=== PATIENT | female | born 1965 | race Two or more races ===

== ENCOUNTER 2024-05-22 10:31 | Outpatient (AMB) | payer MEDICARE, OTHER, SELFPAY ==
--- NOTE | 2024-05-22 10:49 | PD.ORTHCLVIS ---
Vital signs 05/22/24 10:50 Height 1.57 m Height Method Stated Weight 90.804 kg Weight Measurement Method Standing Scale BMI 36.6 BP 140/94 H Blood Pressure Source Automatic Cuff Blood Pressure Location Right Upper Arm Position Sitting Respiration 18 Pulse 80 Pulse Source Monitor Temp 97.2 F Temp Source Temporal Artery Scan Pulse Oximetry (%) 98 Oxygen Delivery Method Room Air Med/Allergies Allergies & Medications Allergies No Known Drug Allergies Allergy (Verified 05/22/24 10:50) Medication Reconciliation levothyroxine 25 mcg capsule 25 mcg PO QDAY 05/22/24 [History Confirmed 05/22/24] Subjective Visit Visit for: new patient and knee Immunization / Flu Flu Vaccine in the Last 12 Months: Yes Flu Vaccine Exclusion Criteria: Already Received History of Present Illness Chief complaint: BILATERAL KNEE PAIN Date of injury / onset of symptoms: EDDA Portillo is a pleasant 59-year-old female with bilateral knee pain worse on the left. This been ongoing for over 4 years. She has tried over 4 injections in each knee. She tried anti-inflammatories including naproxen and she tried a home exercise program at home. She is also tried physical therapy and failed. She is now using a cane and reports that she has pain at rest at night. Personal History Occupation: UNEMPLOYED Red flag PMH: none Pain Pain level (0-10): 7 Pain duration: ALL DAY Pain location: inside (medial), outside (lateral), anterior and posterior Pain quality: sharp, dull and aching Pain timing: increases with activity Associated signs & symptoms: numbness, weakness and stiffness Ambulatory data Ambulatory device: cane Treatments Number of previous injections: 3 Improvement with previous injections: Yes Improvement with PT: No Improvement with NSAIDS: n/a Review of Systems Review of Systems: All systems negative unless otherwise noted in HPI. Exam Exam Patient is in no acute distress and is cooperative with the examination today. Breathing is nonlabored. In no respiratory distress. Bilateral extremities were evaluated and demonstrates sensation intact to light touch. Palpable pedal pulses are present. No significant edema is present. Bilateral hips were examined. The patient has no pain with log roll of the hips. Internal rotation to 30 degrees and external rotation to 30 degrees is painless. Negative FADIR. The left knee was examined. The left knee is in [varus] alignment. Range of motion from [0-115] degrees. Knee is stable to varus and valgus as well as AP translation with <5mm. Patient has a [negative] McMurrays. There is [no] pain with patellofemoral compression and [no] crepitus noted. The knee is [tender] to palpation [medially]. The right knee was also examined. The right knee is in [varus] alignment. Range of motion from [0-120] degrees. Knee is stable to varus and valgus as well as AP translation with <5mm. Patient has a [negative] McMurrays. There is [no] pain with patellofemoral compression and [no] crepitus noted. The knee is [tender] to palpation [medially]. Bilateral knee x-rays demonstrate significant joint space narrowing with complete obliteration of the medial joint space on the left. There are osteophytes present. This is Kellgren-Surendra stage IV. Assessment and Plan Problem List (1) Arthritis of left knee: Status: Acute Plan: Patient is a 59-year-old female with severe left knee arthritis. She is failed conservative treatment occluding over 4 injections, anti-inflammatories, home exercise programs, and physical therapy. She is also made a good attempt to lose weight. We thus discussed total knee replacement is a reasonable option. She has lost over 10 pounds since her last PCP visit. The nature and purpose of the total knee replacement, alternative method(s) of treatment, the material risks involved, and the possibility of complications were fully explained to the patient. The patient does NOT have any of the following contraindications to TKA: - Active infection of the knee joint, OR - Active systemic bacteremia, OR - Active skin infection or open wound at surgical site, OR - Neuropathic arthritis, OR - Severe, rapidly progressive neurological disease, OR - Severe medical condition that makes risks of surgery outweigh the potential benefit The patient was told the most common risks and complications associated with a total knee replacement include, but are not limited to: blood clots in the leg, fatal pulmonary embolism, dislocation of the prosthesis, intraoperative and postoperative fractures of the femur or tibia, infection, failure of the prosthesis or grafting materials, complications from anesthesia, reactions to blood transfusions, postoperative leg length inequality, instability of the knee replacement, nerve damage or injury, vascular injury, delayed wound healing, infection, other injury or even . In addition, there are risks associated with anesthesia given during this operation. Also, the patient was told that after undergoing a total knee replacement there may still be persistent pain or disability. The patient was informed that the success of this operation in part depends upon the mechanical devices which are going to be implanted and that these devices can fail or malfunction, and may need to be repaired or replaced and there are no guarantees as to the longevity of this device or its parts and that it or its parts could fail prematurely. The patient was also notified that during the course of surgery, there may be a need to use bone graft from donors, and that any bone graft used will be carefully screened for communicable diseases, including AIDS, hepatitis, Abdirizak-Creutzfeldt, or other diseases, but despite the screening procedures, there is a small chance that they could contract one of these diseases. Finally, the patient was asked to follow completely and fully with all advice and recommended treatments, and that recovery and ultimate outcome are affected by their compliance with recommended treatment. We discussed the risks, benefits and treatment alternatives, and the patient is interested in proceeding with surgery. We will try to set this up as expeditiously as possible. Office Procedures GNS Level of Care Nursing/Assessment Patient Status: Initial/New Patient Nursing Assessment/Reassesment: Medication Reconciliation, Update PMH in EMR and Vital Signs Coordination of Care: Complex Care and Chronic Disease 1-5, Education Complex Pt/Fam, Consent,records obtained, informed consent, Results/Orders obtained and Staff clarify orders Special Needs: Language special needs New Patient Charge New Patient Point Assignment: 1094 New Patient Point Charge: SURVEY COORDINATOR Level 3 (0030-0423) Past Medical History Past Medical History Have you ever been diagnosed with any of the following: Respiratory Problems Smoking: No Smoking Exposure: No Endocrine Problems Hypothyroidism: Yes Surgical History Additional Surgical History: GASTRIC BYPASS
[2024-05-22 10:50] VITALS: BP 140/94; PULSE 80; RESP 18; TEMP 36.2; O2SAT 98; BMI 36.6
== END 2024-05-22 11:19 | disposition home or self-care (01) ==
PROVIDERS: PCP Internal Medicine; Referring Provider Internal Medicine; Supervising Provider Orthopaedic Surgery Adult Reconstructive Orthopaedic Surgery; Visit Provider Orthopaedic Surgery Adult Reconstructive Orthopaedic Surgery
DX: M17.12 Unilateral primary osteoarthritis, left knee (principal)
CPT/HCPCS: 99203; G0463

== ENCOUNTER 2024-06-05 10:26 | Outpatient (AMB) | payer MEDICARE, OTHER, SELFPAY ==
[2024-06-05 10:41] VITALS: BP 123/85; PULSE 74; RESP 18; TEMP 36.1; O2SAT 97; BMI 37.2
--- NOTE | 2024-06-05 10:41 | ORTHONT_ITS ---
Vital signs 06/05/24 10:41 Height 1.57 m Height Method Stated Weight 91.796 kg Weight Measurement Method Standing Scale BMI 37.2 BP 123/85 H Blood Pressure Source Automatic Cuff Blood Pressure Location Right Upper Arm Position Sitting Respiration 18 Pulse 74 Pulse Source Monitor Temp 96.9 F Temp Source Temporal Artery Scan Pulse Oximetry (%) 97 Oxygen Delivery Method Room Air Med/Allergies Allergies & Medications Allergies No Known Drug Allergies Allergy (Verified 06/05/24 10:41) Medication Reconciliation levothyroxine 25 mcg capsule 25 mcg PO QDAY 05/22/24 [History Confirmed 05/25 09/17] Subjective Visit Visit for: new patient, follow up visit, knee and x-rays Immunization / Flu Flu Vaccine in the Last 12 Months: Yes Flu Vaccine Exclusion Criteria: No Exclusion Criteria and Already Received History of Present Illness Chief complaint: BILATERAL KNEE PAIN Date of injury / onset of symptoms: EDDA Portillo is a pleasant 59-year-old female with bilateral knee pain worse on the left. This been ongoing for over 4 years. She has tried over 4 injections in each knee. She tried anti-inflammatories including naproxen and she tried a home exercise program at home. She is also tried physical therapy and failed. She is now using a cane and reports that she has pain at rest at night. Personal History Occupation: UNEMPLOYED Red flag PMH: none Pain Pain level (0-10): 7 Pain duration: ALL DAY Pain location: inside (medial), outside (lateral), anterior and posterior Pain quality: sharp, dull and aching Pain timing: increases with activity Associated signs & symptoms: numbness, weakness and stiffness Ambulatory data Ambulatory device: cane Treatments Number of previous injections: 3 Improvement with previous injections: Yes Improvement with PT: No Improvement with NSAIDS: n/a Review of Systems Review of Systems: All systems negative unless otherwise noted in HPI. Exam Exam Patient is in no acute distress and is cooperative with the examination today. Breathing is nonlabored. In no respiratory distress. Bilateral extremities were evaluated and demonstrates sensation intact to light touch. Palpable pedal pulses are present. No significant edema is present. Bilateral hips were examined. The patient has no pain with log roll of the hips. Internal rotation to 30 degrees and external rotation to 30 degrees is painless. Negative FADIR. The left knee was examined. The left knee is in [varus] alignment. Range of motion from [0-115] degrees. Knee is stable to varus and valgus as well as AP translation with <5mm. Patient has a [negative] McMurrays. There is [no] pain with patellofemoral compression and [no] crepitus noted. The knee is [tender] to palpation [medially]. The right knee was also examined. The right knee is in [varus] alignment. Range of motion from [0-120] degrees. Knee is stable to varus and valgus as well as AP translation with <5mm. Patient has a [negative] McMurrays. There is [no] pain with patellofemoral compression and [no] crepitus noted. The knee is [tender] to palpation [medially]. Bilateral knee x-rays demonstrate significant joint space narrowing with complete obliteration of the medial joint space on the left. There are osteophytes present. This is Kellgren-Surendra stage IV. Assessment and Plan Problem List (1) Arthritis of left knee: Status: Acute Plan: Patient is a 59-year-old female with severe left knee arthritis. She is failed conservative treatment occluding over 4 injections, anti-inflammatories, home exercise programs, and physical therapy. She is also made a good attempt to lose weight. We thus discussed total knee replacement is a reasonable option. She has lost over 10 pounds since her last PCP visit. She reports the pain is worse on the left and we will start on that side The nature and purpose of the total knee replacement, alternative method(s) of treatment, the material risks involved, and the possibility of complications were fully explained to the patient. The patient does NOT have any of the following contraindications to TKA: - Active infection of the knee joint, OR - Active systemic bacteremia, OR - Active skin infection or open wound at surgical site, OR - Neuropathic arthritis, OR - Severe, rapidly progressive neurological disease, OR - Severe medical condition that makes risks of surgery outweigh the potential benefit The patient was told the most common risks and complications associated with a total knee replacement include, but are not limited to: blood clots in the leg, fatal pulmonary embolism, dislocation of the prosthesis, intraoperative and postoperative fractures of the femur or tibia, infection, failure of the prosthesis or grafting materials, complications from anesthesia, reactions to blood transfusions, postoperative leg length inequality, instability of the knee replacement, nerve damage or injury, vascular injury, delayed wound healing, infection, other injury or even . In addition, there are risks associated with anesthesia given during this operation. Also, the patient was told that after undergoing a total knee replacement there may still be persistent pain or disability. The patient was informed that the success of this operation in part depends upon the mechanical devices which are going to be implanted and that these devices can fail or malfunction, and may need to be repaired or replaced and there are no guarantees as to the longevity of this device or its parts and that it or its parts could fail prematurely. The patient was also notified that during the course of surgery, there may be a need to use bone graft from donors, and that any bone graft used will be carefully screened for communicable diseases, including AIDS, hepatitis, Abdirizak-Creutzfeldt, or other diseases, but despite the screening procedures, there is a small chance that they could contract one of these diseases. Finally, the patient was asked to follow completely and fully with all advice and recommended treatments, and that recovery and ultimate outcome are affected by their compliance with recommended treatment. We discussed the risks, benefits and treatment alternatives, and the patient is interested in proceeding with surgery. We will try to set this up as expeditiously as possible. Office Procedures GNS Level of Care Nursing/Assessment Patient Status: Established Patient Nursing Assessment/Reassesment: Medication Reconciliation, Update PMH in EMR and Vital Signs Coordination of Care: Complex Care and Chronic Disease 1-5, Education Complex Pt/Fam, Consent,records obtained, informed consent, 2-3 Insurance Autorizations needed, Results/Orders obtained and Staff clarify orders Special Needs: Language special needs Established Patient Charge Established Patient Point Assignment: 115 Established Patient Point Charge: EP Level 3 (80-115) Past Medical History Past Medical History Have you ever been diagnosed with any of the following: Respiratory Problems Smoking: No Smoking Exposure: No Endocrine Problems Hypothyroidism: Yes
== END 2024-06-05 11:22 | disposition home or self-care (01) ==
LOC: HODSRG 10:26
PROVIDERS: PCP Internal Medicine; Referring Provider Internal Medicine; Supervising Provider Orthopaedic Surgery Adult Reconstructive Orthopaedic Surgery; Visit Provider Orthopaedic Surgery Adult Reconstructive Orthopaedic Surgery
DX: M17.12 Unilateral primary osteoarthritis, left knee (principal); M25.562 Pain in left knee; M25.561 Pain in right knee
CPT/HCPCS: 99213; G0463

== ENCOUNTER → 2024-06-14 | Outpatient (CLI) | payer MEDICARE, MEDICAID, SELFPAY ==
--- NOTE | 2024-06-14 12:55 | XR_ITS ---
Examination: CT left lower extremity without intravenous contrast 2-D sagittal reconstructions. 2-D coronal reconstructions. 3-D reconstructions. Date and time of exam:June 14, 2024 1522 hours INDICATIONS: Left knee pain osteoarthritis 2 years CTDI: vol (mGy):12.1 DLP: (mGycm):827 Technique: Multiple 1.25 mm axial sections of the left lower extremity without intravenous contrast have been obtained. 2-D sagittal and coronal reconstructions have been obtained. 3-D reconstructions have been obtained. Low dose protocols were performed. One or more of the following dose reduction techniques were used; automated exposure control, adjustment of the mA and/or KV according to patient size, use of iterative reconstruction technique. 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
== END | disposition home or self-care (01) ==
PROVIDERS: Referring Provider Orthopaedic Surgery Adult Reconstructive Orthopaedic Surgery; Visit Provider Orthopaedic Surgery Adult Reconstructive Orthopaedic Surgery
DX: M17.12 Unilateral primary osteoarthritis, left knee (principal); M25.862 Other specified joint disorders, left knee
CPT/HCPCS: 73700

== ENCOUNTER 2024-07-04 06:45 | Day surgery (SDC) | payer OTHER, SELFPAY ==
[2024-06-29 09:19] VITALS: BMI 40.4
--- NOTE | 2024-06-29 09:37 | EKG_ITS ---
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
[2024-06-29 11:25] LABS: Basophils # (Auto) 0.1 Thou/mm3 (0.0-0.2); Basophils % (Auto) 1 % (0-2.5); Eosinophils # (Auto) 0.1 Thou/mm3 (0.0-0.5); Eosinophils % (Auto) 2 % (0-10); Hemoglobin 14.1 g/dL (12.0-16.0); Immature Granulocytes % (Auto) 0 % (0-0); Immature Granulocytes Auto 0.01 Thou/mm3 (0.00-0.00); Lymphocytes # (Auto) 2.6 Thou/mm3 (1.0-4.8); Lymphocytes % (Auto) 41 % (10-50); Mean Corpuscular HGB Conc 33.6 g/dl (31.0-37.0); Mean Corpuscular Hemoglobin 30.1 pg (25.0-35.0); Mean Corpuscular Volume 90 fL (80-100); Monocytes # (Auto) 0.5 Thou/mm3 (0.0-0.8); Monocytes % (Auto) 7 % (0-12); Neutrophils # (Auto) 3.2 Thou/mm3 (1.8-7.7); Neutrophils % (Auto) 49 % (37-80); Nucleated Red Blood Cell % 0 /100 WBC (0); Platelet Count 290 Thou/mm3 (140-440); RDW Standard Deviation 40.5 fL (36.4-46.3); Red Blood Count 4.68 Miln/mm3 (4.00-5.20); White Blood Count 6.5 Thou/mm3 (3.6-11.0)
[2024-06-29 11:30] LABS: Partial Thromboplastin Time 29.1 Seconds (22.0-36.0); Prothrombin Time 11.2 Seconds (9.0-12.2)
[2024-06-29 11:43] LABS: Alanine Aminotransferase 11 U/L (10-49); Albumin, Serum 4.7 gm/dL (3.4-4.8); Albumin/Globulin Ratio 1.9 (1.2-2.2); Alkaline Phosphatase 124 U/L (46-116); Anion Gap 7 (7-16); BUN/Creatinine Ratio 18 Ratio (12-20); Bilirubin,Total 0.8 mg/dL (0.3-1.2); Blood Urea Nitrogen 11 mg/dL (9-23); Carbon Dioxide 31.1 mMol/L (20.0-31.0); Chloride 102 mMol/L (98-107); Creatinine (Component) 0.6 mg/dL (0.6-1.3); Estimated Creatinine Clearance 100.7 mL/min (>60); Globulin 2.5 gm/dL (2.3-3.5); Glucose 94 mg/dL (74-106); Osmolality,Calculated 278 (275-295); Potassium 4.2 mMol/L (3.4-5.1); Sodium 140 mMol/L (136-145); Total Protein 7.2 gm/dL (5.7-8.2); eGFR > 60 See Note
[2024-06-29 12:26] LABS: Aspartate Amino Transferase 20 U/L (0-34)
[2024-07-04] VITALS (12 sets, daily range): BP systolic 114–135; BP diastolic 67–84; PULSE 70–88; RESP 12–16; TEMP 36.6–36.8; O2SAT 95–100; BMI 40.4; BMI 13.0
[2024-07-04] MEDS: ACETAMINOPHEN 325 MG TABLET 650 MG PO (07:08)
[2024-07-04] MEDS: MELOXICAM 7.5 MG TABLET PO (07:08)
[2024-07-04] MEDS: PREGABALIN 75 MG CAPSULE PO (07:08)
[2024-07-04] MEDS: RINGERS LACTATED 1000 ML 1,000 ML 20 ML IV (07:10)
--- NOTE | 2024-07-04 07:20 | CHAP ---
translated for me. I prayed with patient before her procedure.
--- NOTE | 2024-07-04 09:46 | XR_ITS ---
Examination: Left knee 2 views Technique one AP lateral left knee 2 views Exam date and time: July 04, 2024 1023 hours INDICATIONS: Status post total left knee replacement FINDINGS: Moderate osteopenia Total left knee arthroplasty. Satisfactory alignment. No fracture IMPRESSION: Total left knee arthroplasty with satisfactory alignment
--- NOTE | 2024-07-04 09:54 | PD.SUROPNT ---
Date of Procedure 07/04/24 Pre Op Diagnosis left knee osteoarthritis Post Op Diagnosis left knee osteoarthritis Procedure left total knee replacement Findings full thickness cartilage loss and osteophytes Procedure Description Indication: The patient is a 59 year old who has a long history of left knee pain. X-rays show degenerative arthritis involving the knee. Over the past several years the patient has had increasing pain, progressive limitation in function. He has failed conservative measures including activity modification, physical therapy, injections, anti-inflammatories, and assistive devices. After a lengthy discussion of the risks and benefits, the patient presents now for total knee replacement. The nature and purpose of the total knee replacement, alternative method(s) of treatment, the material risks involved, and the possibility of complications were fully explained to the patient. The patient was told the most common risks and complications associated with a total knee replacement include, but are not limited to blood clots in the leg, fatal pulmonary embolism, dislocation of the prosthesis, intraoperative and postoperative fractures of the femur or tibia, infection, failure of the prosthesis or grafting materials, complications from anesthesia, reactions to blood transfusions, postoperative leg length inequality, instability of the knee replacement, nerve damage or injury, vascular injury, delayed wound healing, infections, other injury or even . In addition, there are risks associated with anesthesia given during this operation, temporary or permanent numbness on the skin lateral to the incision can be a complication unique to total knee surgery, and kneeling can be painful after knee replacement surgery. Also, the patient was told that after undergoing a total knee replacement there may still be pain or disability. We discussed with the patient that we will be using a robot-assisted technology. We discussed that there is a possibility of converting to manual instrumentation. The patient was informed that the success of this operation in part depends upon the mechanical devices which are going to be implanted and that these devices can fail or malfunction, and may need to be repaired or replaced and there are no guarantees as to the longevity of this device or its part and that it or its parts could fail prematurely. Finally, the patient was asked to follow completely and fully with all advice and recommended treatments, and that recovery and ultimate outcome are affected by their compliance with recommended treatment. Surgical technique: Patient was marked and consented in the pre-operative area. The patient was brought to the operating room and placed on the operating table in a supine position. Prior to positioning, a timeout procedure was performed between the surgeon, the anesthesiologist, and the nursing staff where the patient and the operative side were identified and confirmed. After adequate general anesthetic was obtained, the left lower extremity was prepped and draped in the usual sterile fashion. A weight based dose of Cefazolin were administered within 1 hour prior to incision. The robot was preregistered and calirated before the incision. The extremity was exsanguinated with an esmarch badge and tourniquet inflated to 250mmHg. A midline incision was made. A median parapatellar arthrotomy was made. The patella was subluxed laterally. A medial release was performed to expose the medial tibia. His femoral and tibial pins were placed through an intra incisional manner for both cases. Every effort was made to ensure that the distalmost aspect of the pin was hung in the second cortex. The arrays were then tightened several times to ensure that it was fixed for the remainder of the case. Both femoral and tibial checkpoints were then placed. We then went through the registration process of the bone. We then assessed the knee deformity and attempted to correct it. We also used the robot to aid in judging laxity in both extension and flexion. Final based on laxity and alignment we changed the preoperative assessment to obtain proper proper implant positioning and to correct deformity. Attention was then placed to the tibia. We made a tibial cut using the robot ensuring that both the MCL and the patella tendon were protected with retractors. We then went to the femur and made the posterior cut followed by the anterior cut and the anterior chamfer. The bone was then removed and we made a distal femur cut and a posterior chamfer cut. We verified all cuts. A trial reduction was performed with a size 3 femoral component and a size 3 keeled tibial component. The patella was cut and sized to a 31. The patella tracked centrally, and no lateral retinacular release was necessary. The trial implants were removed. The arrays, pins, and checkpoints were all removed. We performed a verification that all pins were removed. The cut bone surfaces were lavaged. A size 3 left femoral component, a size 3 keeled tibial component, were impacted into position. A size 31 patella was cemented into posiution The knee was felt to be well balanced in the sagittal and coronal plane. The final 3x10 mm cruciate-substituting articular insert was impacted into the tibial tray. The knee was brought out to full extension, flexed up to 120 degrees. It was stable to varus and valgus stress and appropriately balanced in flexion and extension. The wounds were copiously irrigated following deflation of tourniquet. The medial retinaculum was reapproximated with #1 vicryl and quill. The subcutaneous tissues were closed with 0 and 2-0 interrupted Vicryl. The skin was closed with 3-0 Monofilament V loc suture. A sterile dressing was applied. The patient was transferred to a bed and brought to recovery in stable condition. The patient tolerated the procedure well. There were no intraoperative complications. Sponge and needle counts were correct times 2. As the attending surgeon, Annetta ham I was present and performed the entire operation. Grafts/Implants Size 3 CR Femur Size 3 Tibia 10mm poly CS 31mm patella Implants nathaly cementless implants, cemented patella Pathology / specimen None Pathology comment: none Estimated Blood Loss 150 Surgeon Kd Oseguera MD Surgical Staff Operation Date: 07/04/24 10:15 Case Staff Anesthesiologist: Trevor Vargas
--- NOTE | 2024-07-04 10:39 | SUR.PHASEI ---
1004: Pt received in [facility] via gurney. Report from Megan MIRANDA and Dr. Vargas. Pt groggy. Easily aroused with eye opening. Resp even, unlabored. VS stable. Dressing to left knee dry, clean, intact. Left pedal pulses strong, regular. No c/o pain. 1025: Pt more awake. Resp even, unlabored. VS stable. Dressing dry, clean, intact. Pedal pulse strong, regular. Pt can wiggle left foot. No c/o pain. Radiology here to take ordered knee x-ray 2 view. 1030: X-rays complete. Pt tolerated procedure with no complaints voiced. Dr. Oseguera at bedside. Stated pt could be discharged home.
--- NOTE | 2024-07-04 11:13 | SUR.PHASEII ---
1105: Pt resting with no complaints voiced. VS stable. Dressing remains dry, clean, intact. Bilateral pedal pulses strong, regular. No c/o pain. Pt sitting up tolerating po fluids with no difficulty swallowing and no n/v. Awaiting Physical Therapy.
[2024-07-04] MEDS: ONDANSETRON INJ 2 MG/ML INJ 2 ML 4 MG IV (11:38)
--- NOTE | 2024-07-04 14:24 | SUR.PHASEII ---
Addendum entered by Eli Ownes RN 07/04/24 14:32: 1138: Pt stating she feel nauseated. Zofran given per order. 1148: Pt stated nausea has subsided and feels much better. Original Note: 1126: Physical Therapy here to assess pt. 1150: Physical Therapy assessment complete. Recommendation pt can be discharged. 1205: VS stable. Dressing to left knee dry, clean, intact. Bilateral pedal pulses strong, regular. Pt dressing. 1215: Pt dressed and assisted to transport chair. Ambulation steady. 1235: Pt fully awake, oriented x3. Pt requested sister interpret for her. Did not wish to use telephone medical assistant prn. Both stated understanding of discharge instructions. Pt stated she needed to void. Assisted to restroom. 1244: Pt transport to awaiting transportation. Pt discharged from [facility] in stable condition.
--- NOTE | 2024-07-06 15:27 | ESPR_ITS ---
Documentation for date of: 07/06/24 POST ANESTHESIA NOTE: Patient had GETA and L adductor canal block for L TKA on 07/04/24. I just called and spoke with her on the phone via translator interpreter and she denied any problems from anesthesia. Trevor Vargas MD Anesthesia Progress Note Progress Note Most recent Vital Signs: Last Vital Signs Temp 98.2 F 07/04/24 11:50 Pulse 88 07/04/24 11:50 Resp 12 07/04/24 11:50 BP 116/72 07/04/24 11:50 Pulse Ox 98 07/04/24 11:50 O2 Flow Rate 3 07/04/24 10:35
== END 2024-07-04 12:44 | disposition home or self-care (01) ==
PROVIDERS: Anesthesiology; PCP Internal Medicine; Referring Provider Orthopaedic Surgery Adult Reconstructive Orthopaedic Surgery; Visit Provider Orthopaedic Surgery Adult Reconstructive Orthopaedic Surgery
PROC: (CPT 27447; principal; 2024-07-04 10:00)
DX: M17.12 Unilateral primary osteoarthritis, left knee (principal); Z01.810 Encounter for preprocedural cardiovascular examination
CPT/HCPCS: 27447; 20985; 36415; 73560; 80053; 85025; 85610; 85730; 93005; 97162; A4217; C1713; C1776; J0171; J0690; J1100; J1885; J2250; J2371; J2405; J2704; J2710; J2795; J3010; J3490; J7030; J7120; P9045; A4648; A4649; A9270; J1596

== ENCOUNTER 2024-07-20 10:11 | Outpatient (AMB) | payer OTHER, SELFPAY ==
[2024-07-20 10:48] VITALS: BP 122/84; PULSE 76; RESP 18; TEMP 36.2; O2SAT 99; BMI 38.7
--- NOTE | 2024-07-20 10:48 | PD.ORTHCLVIS ---
Vital signs 07/20/24 10:48 Height 1.52 m Height Method Stated Weight 90.066 kg Weight Measurement Method Standing Scale BMI 38.7 BP 122/84 Blood Pressure Source Automatic Cuff Blood Pressure Location Right Upper Arm Position Sitting Respiration 18 Pulse 76 Pulse Source Monitor Temp 97.1 F Temp Source Temporal Artery Scan Pulse Oximetry (%) 99 Oxygen Delivery Method Room Air Med/Allergies Allergies & Medications Allergies No Known Drug Allergies Allergy (Verified 07/20/24 10:49) Medication Reconciliation levothyroxine 25 mcg capsule 25 mcg PO QDAY 05/22/24 [History Confirmed 07/20/24] acetaminophen 500 mg tablet 500 mg PO Q6H PRN Pain 06/29/24 [History Confirmed 07/20/24] omeprazole 40 mg capsule,delayed release 40 mg PO QDAY 06/29/24 [History Confirmed 07/20/24] acetaminophen 500 mg tablet (Acetaminophen Extra Strength) 1,000 mg (2 x 500 mg) PO Q6H PRN pain #90 tabs 07/04/24 [Rx Confirmed 07/20/24] aspirin 81 mg tablet,delayed release 81 mg PO BID #60 tabs 07/04/24 [Rx Confirmed 07/20/24] doxycycline hyclate 100 mg tablet 100 mg PO BID #14 tabs 07/04/24 [Rx Confirmed 07/20/24] gabapentin 300 mg capsule 300 mg PO .qhs #30 caps 07/04/24 [Rx Confirmed 07/20/24] sennosides 8.6 mg-docusate sodium 50 mg tablet (Senna-S) 1 tab-cap PO QDAY #30 tabs 07/04/24 [Rx Confirmed 07/20/24] oxycodone 5 mg tablet 5 mg PO Q6H PRN pain #28 tabs 07/20/24 [Rx] Exam Exam Patient is in no acute distress and is cooperative with the examination today. Breathing is nonlabored. In no respiratory distress. Bilateral extremities were evaluated and demonstrates sensation intact to light touch. Palpable pedal pulses are present. No significant edema is present. Bilateral hips were examined. The patient has no pain with log roll of the hips. Internal rotation to 30 degrees and external rotation to 30 degrees is painless. Negative FADIR. Left knee incision is clean dry and intact. Range of motion 0 to 95 degrees Assessment and Plan Problem List (1) Arthritis of left knee: Status: Acute Plan: Patient is a 59-year-old female with severe left knee arthritis. She is doing well status post left total knee replacement. We will see her back in approximately 4 weeks. She should start physical therapy Office Procedures GNS Level of Care Nursing/Assessment Patient Status: Established Patient Nursing Assessment/Reassesment: Medication Reconciliation, Update PMH in EMR and Vital Signs Coordination of Care: Complex Care and Chronic Disease 1-5, Education Complex Pt/Fam, 1 Ins Authorization and Staff clarify orders Special Needs: Language special needs Established Patient Charge Established Patient Point Assignment: 100 Established Patient Point Charge: EP Level 3 (80-115) MA Intake Visit Data Collection New Patient or Established: Established Patient (seen at [facility] within 3 years) Reason for Visit:: 2 WEEK POST OP LT TKA Seen by Clinical Staff ONLY (RN/MA): No Brick Off Bearer Required: Yes PCP or OBGYN visit in last 3 months: Yes Do You Feel Safe at Home: Yes Questionairres Past Medical History Past Medical History Have you ever been diagnosed with any of the following: Neurological Problems Seizures: No Cardiology Problems Hypercholesterolemia: Yes (diet control) Congestive Heart Failure: No Varicose Veins: Yes Respiratory Problems Chronic Obstructive Pulmonary Disease (COPD): No Smoking: No Smoking Exposure: No Stomache/Intestinal Problems Hepatitis: Yes (has treatment for a yr, does not know which kind) Gastroesophageal Reflux Disease: Yes Obesity: Yes Genital/Urinary Problems Renal Disease: No Reproductive Problems Previous Pregnancies: Yes Musculoskeletal Problems Arthritis: Yes Endocrine Problems Diabetes Mellitus Type 1: No Diabetes Mellitus Type 2: No Hypothyroidism: Yes Other Problems Hospitalization: No Shingles: No Blood Transfusions: No Blood Transfusion Reaction: No Anesthesia Reactions: No Chicken Pox: Yes Cancer: No Subjective Visit Visit for: post op #1 and knee Immunization / Flu Flu Vaccine in the Last 12 Months: Yes Flu Vaccine Exclusion Criteria: Already Received History of Present Illness Chief complaint: 2 WEEK POST OP LT TKA Date of 1st surgery (if applicable): 07/04/2024 Patient is doing well postop status post total knee replacement 2 weeks ago. She has some pain but it is well-controlled Pain Pain level (0-10): 6 Pain duration: CONSTANT Pain location: inside (medial), outside (lateral), anterior and posterior Pain quality: aching Pain timing: other (specify) (WHEN SITTING) Associated signs & symptoms: numbness Ambulatory data Ambulatory device: walker Review of Systems Review of Systems: All systems negative unless otherwise noted in HPI.
== END 2024-07-20 11:49 | disposition home or self-care (01) ==
LOC: HODSRG 10:11
PROVIDERS: Supervising Provider Orthopaedic Surgery Adult Reconstructive Orthopaedic Surgery; Visit Provider Orthopaedic Surgery Adult Reconstructive Orthopaedic Surgery
DX: M17.12 Unilateral primary osteoarthritis, left knee (principal); Z96.652 Presence of left artificial knee joint; E78.00 Pure hypercholesterolemia, unspecified; K21.9 Gastro-esophageal reflux disease without esophagitis
CPT/HCPCS: 99213; G0463

== ENCOUNTER → 2024-08-14 | Outpatient (CLI) | payer MEDICARE, SELFPAY ==
--- NOTE | 2024-08-14 12:51 | XR_ITS ---
Examination: Left knee 4 views TECHNIQUE: AP oblique lateral axial left knee 4 views Exam date and time: August 14, 2024 1346 hours Comparison April 04, 2024 INDICATIONS: Status post total knee replacement June 2024 FINDINGS: Moderate osteopenia Total left knee arthroplasty. Satisfactory alignment No loosening of the prosthetic components No fracture No patellar dislocation IMPRESSION: Total left knee replacement with satisfactory alignment
== END | disposition home or self-care (01) ==
PROVIDERS: PCP Internal Medicine; Referring Provider Orthopaedic Surgery Adult Reconstructive Orthopaedic Surgery; Visit Provider Orthopaedic Surgery Adult Reconstructive Orthopaedic Surgery
DX: M17.12 Unilateral primary osteoarthritis, left knee (principal); Z96.652 Presence of left artificial knee joint
CPT/HCPCS: 73564

== ENCOUNTER 2024-08-17 08:36 | Outpatient (AMB) | payer OTHER, SELFPAY ==
[2024-08-17 08:48] VITALS: BP 119/80; PULSE 81; RESP 18; TEMP 36.6; O2SAT 81; BMI 38.7
--- NOTE | 2024-08-17 08:48 | ORTHONT_ITS ---
Vital signs 08/17/24 08:48 Height 1.52 m Height Method Stated Weight 89.358 kg Weight Measurement Method Standing Scale BMI 38.7 BP 119/80 Blood Pressure Source Automatic Cuff Blood Pressure Location Right Upper Arm Position Sitting Respiration 18 Pulse 81 Pulse Source Monitor Temp 97.8 F Temp Source Temporal Artery Scan Pulse Oximetry (%) 81 L Oxygen Delivery Method Room Air Med/Allergies Allergies & Medications Allergies No Known Drug Allergies Allergy (Verified 08/17/24 08:49) Medication Reconciliation levothyroxine 25 mcg capsule 25 mcg PO QDAY 05/22/24 [History Confirmed 07/26 11/16] acetaminophen 500 mg tablet 500 mg PO Q6H PRN Pain 06/29/24 [History Confirmed 08/17/24] omeprazole 40 mg capsule,delayed release 40 mg PO QDAY 06/29/24 [History Confirmed 08/17/24] acetaminophen 500 mg tablet (Acetaminophen Extra Strength) 1,000 mg (2 x 500 mg) PO Q6H PRN pain #90 tabs 07/04/24 [Rx Confirmed 08/17/24] aspirin 81 mg tablet,delayed release 81 mg PO BID #60 tabs 07/04/24 [Rx C onfirmed 08/17/24] doxycycline hyclate 100 mg tablet 100 mg PO BID #14 tabs 07/04/24 [Rx Confirmed 08/17/24] gabapentin 300 mg capsule 300 mg PO .qhs #30 caps 07/04/24 [Rx Confirmed 08/17/24] sennosides 8.6 mg-docusate sodium 50 mg tablet (Senna-S) 1 tab-cap PO QDAY #30 tabs 07/04/24 [Rx Confirmed 08/17/24] oxycodone 5 mg tablet 5 mg PO Q6H PRN pain #28 tabs 07/20/24 [Rx Confirmed 08/17/24] Exam Exam Patient is in no acute distress and is cooperative with the examination today. Breathing is nonlabored. In no respiratory distress. Bilateral extremities were evaluated and demonstrates sensation intact to light touch. Palpable pedal pulses are present. No significant edema is present. Bilateral hips were examined. The patient has no pain with log roll of the hips. Internal rotation to 30 degrees and external rotation to 30 degrees is painless. Negative FADIR. Left knee incision is clean dry and intact. Range of motion 0 to 95 degrees Left knee is demonstrating a left total knee replacement that is in Good position and alignment Assessment and Plan Problem List (1) Arthritis of left knee: Status: Acute Plan: Patient is a 59-year-old female with severe left knee arthritis. She is doing well status post left total knee replacement. I would like to see her back in 4 to 5 weeks for motion check. She started physical therapy a little weight. Her motion is just past 90 I want her to continue with therapy therapy aggressively. Office Procedures GNS Level of Care Nursing/Assessment Patient Status: Established Patient Nursing Assessment/Reassesment: Medication Reconciliation, Update PMH in EMR and Vital Signs Coordination of Care: Complex Care and Chronic Disease 1-5, Education Complex Pt/Fam, Consent,records obtained, informed consent, Results/Orders obtained and Staff clarify orders Special Needs: Language special needs Established Patient Charge Established Patient Point Assignment: 95 Established Patient Point Charge: EP Level 3 (80-115) MA Intake Visit Data Collection New Patient or Established: Established Patient (seen at [facility] within 3 years) Reason for Visit:: POST OP LT TKA Seen by Clinical Staff ONLY (RN/MA): No Verbal consent obtained for Telemed visit?: No Merchandise Flow Associate Required: Yes PCP or OBGYN visit in last 3 months: Yes Hx Now: No Do You Feel Safe at Home: Yes Authorities Contacted: N/A Questionairres Past Medical History Past Medical History Have you ever been diagnosed with any of the following: Neurological Problems Seizures: No Cardiology Problems Hypercholesterolemia: Yes (diet control) Congestive Heart Failure: No Varicose Veins: Yes Respiratory Problems Chronic Obstructive Pulmonary Disease (COPD): No Smoking: No Smoking Exposure: No Stomache/Intestinal Problems Hepatitis: Yes (has treatment for a yr, does not know which kind) Gastroesophageal Reflux Disease: Yes Obesity: Yes Genital/Urinary Problems Renal Disease: No Reproductive Problems Previous Pregnancies: Yes Musculoskeletal Problems Arthritis: Yes Endocrine Problems Diabetes Mellitus Type 1: No Diabetes Mellitus Type 2: No Hypothyroidism: Yes Other Problems Hospitalization: No Shingles: No Blood Transfusions: No Blood Transfusion Reaction: No Anesthesia Reactions: No Chicken Pox: Yes Cancer: No Subjective Visit Visit for: post op #1 and knee Immunization / Flu Flu Vaccine in the Last 12 Months: Yes Flu Vaccine Exclusion Criteria: Already Received History of Present Illness Chief complaint: POST OP LT TKA Patient is 6 Weeks status post left total knee replacement. She is doing well. She just started physical therapy this week. She is using a walker Personal History Red flag PMH: BMI and none BMI Counceling provided: Yes Pain Pain level (0-10): 6 Pain duration: COMES AND GOES Pain location: inside (medial), outside (lateral) and anterior Pain quality: dull and aching Associated signs & symptoms: numbness Ambulatory data Ambulatory device: walker Treatments Improvement with previous injections: No Improvement with PT: No Improvement with NSAIDS: n/a Review of Systems Review of Systems: All systems negative unless otherwise noted in HPI.
== END 2024-08-17 08:59 | disposition home or self-care (01) ==
LOC: HODSRG 08:36
PROVIDERS: PCP Internal Medicine; Referring Provider Internal Medicine; Supervising Provider Orthopaedic Surgery Adult Reconstructive Orthopaedic Surgery; Visit Provider Orthopaedic Surgery Adult Reconstructive Orthopaedic Surgery
DX: M17.12 Unilateral primary osteoarthritis, left knee (principal); Z96.652 Presence of left artificial knee joint; E78.00 Pure hypercholesterolemia, unspecified; E03.9 Hypothyroidism, unspecified; K21.9 Gastro-esophageal reflux disease without esophagitis
CPT/HCPCS: 99213; G0463

== ENCOUNTER 2024-08-24 13:00 | Outpatient (RCR) | payer MEDICARE, OTHER, SELFPAY ==
--- NOTE | 2024-08-14 11:37 | PT.OIERPT ---
PT OP Initial Eval Patient Information Outpatient Physical Therapy Treatment Date: 08/14/24 Visit Reasons: Left TKA Medical Diagnosis: M17.12 Treatment Dx #1: L knee pain Treatment Dx #2: Dec L knee ROM Start of Care: 08/14/24 Date of Onset: 07/04/24 Smoking Status Smoking Status: Never smoker Initial Assessment Subjective: Pt is 59 yr old faroese speaking female s/p L TKA presents ambulating with FWW limited distances. Pt reports pain with bending the knee back. PLOF: pt was ambulating with a cane due to L knee pain. Prior to onset of L knee pain she was ambulating without assistive device community distances. PMH: thyroidism Pt goal: to get rid of the pain, bend the knee more, walk without the walker Objective: L knee ArOM: Extension: -5 deg Flexion: 80 deg SLR: 60 deg Strength: quads: 4-/5 HS: 4-/5 Gait: dec WB on L with FWW Assessment: Pt presentation consistent with post op L TKA with decreased ROM, strength ? and WB tolerance. Pt lacks a few degrees of knee extension and flexion is limited by ? myofascial limitations and pain.? Pt requires skilled therapy to improve ROM ? and strength and has good rehab potential.? Eval followed by HEP with printout. Short Term and Correction Goals 1. Independent with HEP 2. Improved knee ROM to full extension to 115 deg flexion 3. Improved quad and hamstring strength to 4+/5 4. Improved ambulatory tolerance to community distances with symmetrical ?? gait pattern.??? Treatment Plan 90 day POC 1. Manual therapy ? 2. Therex ? 3. Modalities as indicated, moist heat, ice, estim Frequency and Duration: 2-3x a week for 6 weeks Certification Dates: 08/14/24 to 11/11/24 Procedure Charges OP PT Eval Mod Complex 30 minutes: Yes
--- NOTE | 2024-08-17 11:04 | PTNOTE_ITS ---
PT Outpatient Daily Note OP Daily Note Outpatient Physical Therapy Treatment Date: 08/17/24 Visit Reasons: Left TKA Subjective: Same as evaluation Objective: See F/S for therex MT: STM L ITB and PROM into flexion with overpressure x12' Assessment: PROM of L knee flexion is 90 deg with overpressure Plan: Improve L knee flexion ROM Length of Time (minutes) of Treatment: 30 Minutes Procedure Charges Therapeutic Exercise 15 minutes: Yes Manual Educational Advisor 15 minutes: Yes
--- NOTE | 2024-08-20 10:45 | PT.ODAYNRPT ---
PT Outpatient Daily Note OP Daily Note Outpatient Physical Therapy Treatment Date: 08/20/24 Visit Reasons: Left TKA Subjective: Pain with bending the knee Objective: See F/S for therex MT: PROM into flexion with overpressure x7' Assessment: PROM of L knee flexion is 90 deg with overpressure Plan: Improve L knee flexion ROM Length of Time (minutes) of Treatment: 30 Minutes Procedure Charges Therapeutic Exercise 30 minutes: Yes
--- NOTE | 2024-08-24 14:03 | PT.ODAYNRPT ---
PT Outpatient Daily Note OP Daily Note Outpatient Physical Therapy Treatment Date: 08/24/24 Visit Reasons: Left TKA Subjective: No new complaints or concerns. Objective: Please see flow sheet for ther ex list. Assessment: Performed PROM into knee flexion to pt tolerance, pt guarded around 90 deg of knee flexion. Plan: Continue with POC. Length of Time (minutes) of Treatment: 30 Minutes Procedure Charges Therapeutic Exercise 30 minutes: Yes
== END 2024-08-24 23:59 | disposition home or self-care (01) ==
LOC: CPTX 13:00
PROVIDERS: PCP Orthopaedic Surgery Adult Reconstructive Orthopaedic Surgery; Referring Provider Orthopaedic Surgery Adult Reconstructive Orthopaedic Surgery; Visit Provider Orthopaedic Surgery Adult Reconstructive Orthopaedic Surgery
DX: M25.562 Pain in left knee (principal); Z96.652 Presence of left artificial knee joint; M17.12 Unilateral primary osteoarthritis, left knee
CPT/HCPCS: 97110; 97140; 97162

== ENCOUNTER 2024-09-13 09:31 | Outpatient (AMB) | payer OTHER, SELFPAY ==
[2024-09-13 10:11] VITALS: BP 130/84; PULSE 65; RESP 18; TEMP 35.6; O2SAT 98; BMI 38.4
--- NOTE | 2024-09-13 10:11 | PD.ORTHCLVIS ---
Vital signs 09/13/24 10:11 Height 1.52 m Height Method Stated Weight 88.706 kg Weight Measurement Method Standing Scale BMI 38.4 BP 130/84 Blood Pressure Source Automatic Cuff Blood Pressure Location Left Upper Arm Position Sitting Respiration 18 Pulse 65 Pulse Source Monitor Temp 96.0 F L Temp Source Temporal Artery Scan Pulse Oximetry (%) 98 Oxygen Delivery Method Room Air Med/Allergies Allergies & Medications Allergies No Known Drug Allergies Allergy (Verified 09/13/24 10:12) Medication Reconciliation levothyroxine 25 mcg capsule 25 mcg PO QDAY 05/22/24 [History Confirmed 09/13/24] acetaminophen 500 mg tablet 500 mg PO Q6H PRN Pain 06/29/24 [History Confirmed 09/13/24] omeprazole 40 mg capsule,delayed release 40 mg PO QDAY 06/29/24 [History Confirmed 09/13/24] acetaminophen 500 mg tablet (Acetaminophen Extra Strength) 1,000 mg (2 x 500 mg) PO Q6H PRN pain #90 tabs 07/04/24 [Rx Confirmed 09/13/24] aspirin 81 mg tablet,delayed release 81 mg PO BID #60 tabs 07/04/24 [Rx Confirmed 09/13/24] doxycycline hyclate 100 mg tablet 100 mg PO BID #14 tabs 07/04/24 [Rx Confirmed 09/13/24] gabapentin 300 mg capsule 300 mg PO .qhs #30 caps 07/04/24 [Rx Confirmed 09/13/24] sennosides 8.6 mg-docusate sodium 50 mg tablet (Senna-S) 1 tab-cap PO QDAY #30 tabs 07/04/24 [Rx Confirmed 09/13/24] oxycodone 5 mg tablet 5 mg PO Q6H PRN pain #28 tabs 08/22/24 [Rx Confirmed 09/13/24] Office Procedures GNS Level of Care Nursing/Assessment Patient Status: Established Patient Nursing Assessment/Reassesment: Medication Reconciliation, Update PMH in EMR and Vital Signs Coordination of Care: Complex Care and Chronic Disease 1-5, Education Complex Pt/Fam, Consent,records obtained, informed consent, Results/Orders obtained and Staff clarify orders Special Needs: Language special needs Established Patient Charge Established Patient Point Assignment: 95 Established Patient Point Charge: EP Level 3 (80-115) MA Intake Visit Data Collection New Patient or Established: Established Patient (seen at [facility] within 3 years) Reason for Visit:: L TKA FOLLOW UP Seen by Clinical Staff ONLY (RN/MA): No Dental Mold Maker Required: Yes PCP or OBGYN visit in last 3 months: Yes Hx Now: No Do You Feel Safe at Home: Yes Authorities Contacted: N/A Questionairres Past Medical History Past Medical History Have you ever been diagnosed with any of the following: Neurological Problems Seizures: No Cardiology Problems Hypercholesterolemia: Yes (diet control) Congestive Heart Failure: No Varicose Veins: Yes Respiratory Problems Chronic Obstructive Pulmonary Disease (COPD): No Smoking: No Smoking Exposure: No Stomache/Intestinal Problems Hepatitis: Yes (has treatment for a yr, does not know which kind) Gastroesophageal Reflux Disease: Yes Obesity: Yes Genital/Urinary Problems Renal Disease: No Reproductive Problems Previous Pregnancies: Yes Musculoskeletal Problems Arthritis: Yes Endocrine Problems Diabetes Mellitus Type 1: No Diabetes Mellitus Type 2: No Hypothyroidism: Yes Other Problems Hospitalization: No Shingles: No Blood Transfusions: No Blood Transfusion Reaction: No Anesthesia Reactions: No Chicken Pox: Yes Cancer: No Subjective Immunization / Flu Flu Vaccine in the Last 12 Months: Yes Flu Vaccine Exclusion Criteria: Already Received Review of Systems Review of Systems: All systems negative unless otherwise noted in HPI.
--- NOTE | 2024-09-13 10:11 | PD.ORTHCLVIS ---
Vital signs 09/13/24 10:11 Height 1.52 m Height Method Stated Weight 88.706 kg Weight Measurement Method Standing Scale BMI 38.4 BP 130/84 Blood Pressure Source Automatic Cuff Blood Pressure Location Left Upper Arm Position Sitting Respiration 18 Pulse 65 Pulse Source Monitor Temp 96.0 F L Temp Source Temporal Artery Scan Pulse Oximetry (%) 98 Oxygen Delivery Method Room Air Med/Allergies Allergies & Medications Allergies No Known Drug Allergies Allergy (Verified 09/13/24 10:12) Medication Reconciliation levothyroxine 25 mcg capsule 25 mcg PO QDAY 05/22/24 [History Confirmed 09/13/24] acetaminophen 500 mg tablet 500 mg PO Q6H PRN Pain 06/29/24 [History Confirmed 09/13/24] omeprazole 40 mg capsule,delayed release 40 mg PO QDAY 06/29/24 [History Confirmed 09/13/24] acetaminophen 500 mg tablet (Acetaminophen Extra Strength) 1,000 mg (2 x 500 mg) PO Q6H PRN pain #90 tabs 07/04/24 [Rx Confirmed 09/13/24] aspirin 81 mg tablet,delayed release 81 mg PO BID #60 tabs 07/04/24 [Rx Confirmed 09/13/24] doxycycline hyclate 100 mg tablet 100 mg PO BID #14 tabs 07/04/24 [Rx Confirmed 09/13/24] gabapentin 300 mg capsule 300 mg PO .qhs #30 caps 07/04/24 [Rx Confirmed 09/13/24] sennosides 8.6 mg-docusate sodium 50 mg tablet (Senna-S) 1 tab-cap PO QDAY #30 tabs 07/04/24 [Rx Confirmed 09/13/24] oxycodone 5 mg tablet 5 mg PO Q6H PRN pain #28 tabs 08/22/24 [Rx Confirmed 09/13/24] Exam Exam Patient is in no acute distress and is cooperative with the examination today. Breathing is nonlabored. In no respiratory distress. Bilateral extremities were evaluated and demonstrates sensation intact to light touch. Palpable pedal pulses are present. No significant edema is present. Bilateral hips were examined. The patient has no pain with log roll of the hips. Internal rotation to 30 degrees and external rotation to 30 degrees is painless. Negative FADIR. Left knee incision is clean dry and intact. Range of motion 0 to 85 degrees Left knee xrays demonstrate a left total knee replacement that is in Good position and alignment Assessment and Plan Problem List (1) Arthritis of left knee: Status: Acute Plan: Patient is a 59-year-old female with severe left knee arthritis. She is doing well status post left total knee replacement But has pain limited range of motion. She only can get to 85 degrees today. We discussed manipulation under anesthesia And the risks and benefits of it. We discussed the risks include rupture of the extensor mechanism, And possible fracture. The patient would like to proceed with this. We discussed with her that she is still stiff at 2-1/2 months and thus I do think this is a reasonable choice Office Procedures GNS Level of Care Nursing/Assessment Patient Status: Established Patient Nursing Assessment/Reassesment: Medication Reconciliation, Update PMH in EMR and Vital Signs Coordination of Care: Complex Care and Chronic Disease 1-5, Education Complex Pt/Fam, Consent,records obtained, informed consent, Results/Orders obtained and Staff clarify orders Special Needs: Language special needs Established Patient Charge Established Patient Point Assignment: 95 Established Patient Point Charge: EP Level 3 (80-115) Questionairres Past Medical History Past Medical History Have you ever been diagnosed with any of the following: Neurological Problems Seizures: No Cardiology Problems Hypercholesterolemia: Yes (diet control) Congestive Heart Failure: No Varicose Veins: Yes Respiratory Problems Chronic Obstructive Pulmonary Disease (COPD): No Smoking: No Smoking Exposure: No Stomache/Intestinal Problems Hepatitis: Yes (has treatment for a yr, does not know which kind) Gastroesophageal Reflux Disease: Yes Obesity: Yes Genital/Urinary Problems Renal Disease: No Reproductive Problems Previous Pregnancies: Yes Musculoskeletal Problems Arthritis: Yes Endocrine Problems Diabetes Mellitus Type 1: No Diabetes Mellitus Type 2: No Hypothyroidism: Yes Other Problems Hospitalization: No Shingles: No Blood Transfusions: No Blood Transfusion Reaction: No Anesthesia Reactions: No Chicken Pox: Yes Cancer: No Subjective Visit Visit for: post op #1 and knee Immunization / Flu Flu Vaccine in the Last 12 Months: Yes Flu Vaccine Exclusion Criteria: Already Received History of Present Illness Chief complaint: POST OP LT TKA Patient is 6 Weeks status post left total knee replacement. She is doing well. She started physical therapy very late. Her extension is fine and is limited just in flexion. She can go to about 85 degrees Personal History Red flag PMH: BMI and none BMI Counceling provided: Yes Pain Pain level (0-10): 6 Pain duration: COMES AND GOES Pain location: inside (medial), outside (lateral) and anterior Pain quality: dull and aching Associated signs & symptoms: numbness Ambulatory data Ambulatory device: walker Treatments Improvement with previous injections: No Improvement with PT: No Improvement with NSAIDS: n/a Review of Systems Review of Systems: All systems negative unless otherwise noted in HPI.
== END 2024-09-13 10:18 | disposition home or self-care (01) ==
LOC: HODSRG 09:31
PROVIDERS: PCP Internal Medicine; Referring Provider Internal Medicine; Supervising Provider Orthopaedic Surgery Adult Reconstructive Orthopaedic Surgery; Visit Provider Orthopaedic Surgery Adult Reconstructive Orthopaedic Surgery
DX: M17.12 Unilateral primary osteoarthritis, left knee (principal); Z96.652 Presence of left artificial knee joint; E78.00 Pure hypercholesterolemia, unspecified
CPT/HCPCS: 99213; G0463

== ENCOUNTER 2024-09-19 05:40 | Day surgery (SDC) | payer MEDICARE, MEDICAID, SELFPAY ==
[2024-09-18 08:50] VITALS: BMI 40.1
[2024-09-18 10:00] LABS: Basophils # (Auto) 0.1 Thou/mm3 (0.0-0.2); Basophils % (Auto) 1 % (0-2.5); Eosinophils # (Auto) 0.1 Thou/mm3 (0.0-0.5); Eosinophils % (Auto) 2 % (0-10); Hematocrit 39.8 % (36.0-46.0); Hemoglobin 13.7 g/dL (12.0-16.0); Immature Granulocytes % (Auto) 0 % (0-0); Lymphocytes # (Auto) 2.6 Thou/mm3 (1.0-4.8); Lymphocytes % (Auto) 49 % (10-50); Mean Corpuscular HGB Conc 34.4 g/dl (31.0-37.0); Mean Corpuscular Hemoglobin 30.2 pg (25.0-35.0); Mean Corpuscular Volume 88 fL (80-100); Monocytes # (Auto) 0.4 Thou/mm3 (0.0-0.8); Monocytes % (Auto) 7 % (0-12); Neutrophils # (Auto) 2.1 Thou/mm3 (1.8-7.7); Neutrophils % (Auto) 41 % (37-80); Nucleated Red Blood Cell % 0 /100 WBC (0); Platelet Count 266 Thou/mm3 (140-440); Red Blood Count 4.53 Miln/mm3 (4.00-5.20); White Blood Count 5.3 Thou/mm3 (3.6-11.0)
[2024-09-18 10:08] LABS: Partial Thromboplastin Time 27.9 Seconds (22.0-36.0); Prothrombin Time 11.4 Seconds (9.0-12.2)
[2024-09-18 10:25] LABS: Albumin, Serum 4.4 gm/dL (3.4-4.8); Albumin/Globulin Ratio 1.8 (1.2-2.2); Anion Gap 7 (7-16); Aspartate Amino Transferase 15 U/L (0-34); BUN/Creatinine Ratio 25 Ratio (12-20); Bilirubin,Total 0.7 mg/dL (0.3-1.2); Blood Urea Nitrogen 15 mg/dL (9-23); Calcium 9.6 mg/dL (8.3-10.6); Calcium (Corrected) 9.6 mg/dL (8.5-10.1); Chloride 105 mMol/L (98-107); Creatinine (Component) 0.6 mg/dL (0.6-1.3); Estimated Creatinine Clearance 96.3 mL/min (>60); Globulin 2.4 gm/dL (2.3-3.5); Glucose 89 mg/dL (74-106); Osmolality,Calculated 282 (275-295); Potassium 4.4 mMol/L (3.4-5.1); Sodium 142 mMol/L (136-145); Total Protein 6.8 gm/dL (5.7-8.2); eGFR > 60 See Note
[2024-09-18 10:26] LABS: Alanine Aminotransferase 9 U/L (10-49)
[2024-09-18 10:38] LABS: Alkaline Phosphatase 115 U/L (46-116)
[2024-09-19] VITALS (9 sets, daily range): BP systolic 102–145; BP diastolic 67–99; PULSE 65–85; RESP 12–19; TEMP 36.2–36.5; O2SAT 96–100; BMI 40.4
[2024-09-19] MEDS: RINGERS LACTATED 1000 ML 1,000 ML 20 ML IV (06:36)
--- NOTE | 2024-09-19 07:34 | XR_ITS ---
Examination: Left knee 2 views Technique one AP lateral left knee 2 views Exam date and time: September 19, 2024 0822 hrs. Indications: Postop knee replacement today. Findings: Significant osteopenia Total left knee arthroplasty. Satisfactory alignment No fracture Impression: Total left knee arthroplasty with satisfactory alignment
--- NOTE | 2024-09-19 07:35 | ESOP_ITS ---
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 She had delayed physical therapy. Range of motion was 5 to 85 degrees. We thus discussed manipulation under anesthesia as a reasonable option. We discussed possible risks including rupture of the extensor mechanism as well as fracture Procedure in detail: After adequate anesthesia, a surgical timeout was performed. We verified that the left side was the correct side. We found that her preoperative range of mo tion was 5 to 80 degrees. We applied gentle flexion force and was able to manipulate her knee to 110 degrees. Audible crackles were heard as we push the knee into flexion. The knee felt stable to varus and valgus stress as well as AP translation. Postmanipulation range of motion was 5 to 105 degrees Pathology / specimen None Pathology comment: none Estimated Blood Loss 0 Surgeon Kd Oseguera MD Surgical Staff Operation Date: 09/19/24 07:30 <No data on this case meets the specified criteria>
--- NOTE | 2024-09-19 07:43 | SUR.PHASEI ---
Pt. arrived to recovery via gurney, eyes closed, oral airway in place, pt. receiving 10 liters 02 via oxymask, lung sounds clear, equal expansion kofi., pedal pulses present kofi., report received from Luis MIRANDA and Dr. Cornejo.
--- NOTE | 2024-09-19 08:30 | SUR.PHASEII ---
pt able to tolerate oral fluids without difficulty swallowing or nausea/vomiting.
[2024-09-19] MEDS: oxyCODONE HCL 5 MG IR TAB PO (08:47)
--- NOTE | 2024-09-19 09:12 | SUR.PHASEII ---
pt awake and alert, breathing unlabored on room air. v/s stable. pt able to ambulate to wheelchair with steady gait. d/c instructions given with sunil GutierrezMukul in room, all questions answered. pt d/c via wheelchair with all belongings.
== END 2024-09-19 09:12 | disposition home or self-care (01) ==
PROVIDERS: Anesthesiology; PCP Internal Medicine; Referring Provider Orthopaedic Surgery Adult Reconstructive Orthopaedic Surgery; Visit Provider Orthopaedic Surgery Adult Reconstructive Orthopaedic Surgery
PROC: (CPT 27570; principal; 2024-09-19 07:30)
DX: M24.662 Ankylosis, left knee (principal)
CPT/HCPCS: 27570; 36415; 73560; 80053; 85025; 85610; 85730; J2250; J2405; J2704; J3010; J7120; A9270

== ENCOUNTER 2024-09-20 11:30 | Outpatient (RCR) | payer MEDICARE, OTHER, SELFPAY ==
--- NOTE | 2024-08-27 14:06 | PT.ODAYNRPT ---
PT Outpatient Daily Note OP Daily Note Outpatient Physical Therapy Treatment Date: 08/27/24 Visit Reasons: Left total knee Subjective: Pt reports L knee is doing ok, has been having pain and discomfort on the back of knee. Objective: Please see flow sheet for ther ex list. Assessment: Pt refused PROM today despite SENSORY SCIENTIST educating on benefits of PROm. Pt encouraged to perform HEP to work on mobility of L knee. Plan: Continue with POC. Length of Time (minutes) of Treatment: 30 Minutes Procedure Charges Therapeutic Exercise 30 minutes: Yes
--- NOTE | 2024-08-30 14:15 | PT.ODAYNRPT ---
PT Outpatient Daily Note OP Daily Note Outpatient Physical Therapy Treatment Date: 08/30/24 Visit Reasons: Left total knee Subjective: Pain with bending the knee Objective: See F/S for therex MT: PROM into flexion with overpressure x7' Assessment: PROM of L knee flexion is 90 deg with overpressure. Pt doesn't tolerate overpressure enough to make significant progress with knee flexion ROM goals. Plan: Improve L knee flexion ROM Length of Time (minutes) of Treatment: 30 Minutes Procedure Charges Therapeutic Exercise 30 minutes: Yes
--- NOTE | 2024-09-03 15:01 | PTNOTE_ITS ---
PT Outpatient Daily Note OP Daily Note Outpatient Physical Therapy Treatment Date: 09/03/24 Visit Reasons: Left total knee Subjective: Pt reports she has been using cane for ambulation but feels the back of her leg and thigh are tight and sore. Objective: Please see flow sheet for ther ex list. Assessment: Pt instructed on prone knee flexion stretch, pt able to replicate with good technique encouraged to perform for HEP. Plan: Continue with POC. Length of Time (minutes) of Treatment: 30 Minutes WELLNESS SPECIALIST Service Modifier Method I: Divide the number of min of care provided by the WELLNESS SPECIALIST/DIRECTOR OF INDUSTRIAL RELATIONS by the total min of care provided then multiply by 100. If greater than 11 percent modifier is required. Method II: Divide the total time of care provided to patient by 10 (round to the nearest whole number) and add 1 min. to set the minimum time requirement. If treatment total was 60 min., then 10% of 6 min PT CQ modifier applied: CQ Modifier applied Procedure Charges Therapeutic Exercise 30 minutes: Yes
--- NOTE | 2024-09-05 13:44 | PT.ODAYNRPT ---
PT Outpatient Daily Note OP Daily Note Outpatient Physical Therapy Treatment Date: 09/05/24 Visit Reasons: Left total knee Subjective: Pain with bending the knee Objective: See F/S for therex MT: PROM into flexion with overpressure x7' Assessment: PROM of L knee flexion is 90 deg with overpressure. Pt doesn't tolerate overpressure enough to make significant progress with knee flexion ROM goals. Plan: Improve L knee flexion ROM Procedure Charges Therapeutic Exercise 30 minutes: Yes
--- NOTE | 2024-09-12 14:27 | PT.ODS1RPT ---
PT OP Progress/Discharge Note Date of Service: 09/12/24 Progress Note/DC Note Progress Note/Discharge Note: Progress Note Patient Information Visit Reasons: Left total knee Service Continue Service or Discharge: Continue Service Status Subjective: Pain with bending the knee. Ambulating with cane. Objective: See F/S for therex MT: PROM into flexion with overpressure x7' L knee AROM: Extension: full Flexion: 85 deg PROM flexion: 90 deg Gait: decreased WB on L LE with lateral sway with cane Assessment: Pt has attended / Rx sessions with slow progress with PROM of L knee flexion that is 90 deg with overpressure. Pt doesn't tolerate overpressure enough to make significant progress with knee flexion ROM goals due to pain response. Pt has full extension to meet that goal. Plan: Continue with 2 more visits to improve L knee flexion ROM then reassess Procedure Charges Therapeutic Exercise 30 minutes: Yes
--- NOTE | 2024-09-14 14:09 | PTNOTE_ITS ---
PT Outpatient Daily Note OP Daily Note Outpatient Physical Therapy Treatment Date: 09/14/24 Visit Reasons: Left total knee Subjective: Pt reports L knee continues to be painful. Pt mentioned that she had follow up with surgeon and he scheduled her for a KASSANDRA for Thursday September 19, 2024. Objective: Please see flow sheet for ther ex list. Assessment: Pt educated on the importance of returning to PT day 1 post op, pt agreed schedule appt. for PT. Pt continues to be guarded due to pain response during static, dynamic and manual stretches. Plan: Continue with POC. Length of Time (minutes) of Treatment: 30 Minutes ADULT FAMILY HOME PROGRAM MANAGER Service Modifier Method I: Divide the number of min of care provided by the ADULT FAMILY HOME PROGRAM MANAGER/MACHINE ATTENDANT by the total min of care provided then multiply by 100. If greater than 11 percent modifier is required. Method II: Divide the total time of care provided to patient by 10 (round to the nearest whole number) and add 1 min. to set the minimum time requirement. If treatment total was 60 min., then 10% of 6 min PT CQ modifier applied: CQ Modifier applied Procedure Charges Therapeutic Exercise 30 minutes: Yes
--- NOTE | 2024-09-17 14:03 | PT.ODS1RPT ---
PT OP Progress/Discharge Note Date of Service: 09/17/24 Progress Note/DC Note Progress Note/Discharge Note: Progress Note Patient Information Visit Reasons: Left total knee Service Continue Service or Discharge: Continue Service Discharge Date: 09/12/24 Status Subjective: Pain with bending the knee. Ambulating with cane. KASSANDRA scheduled for 09/19. Objective: See F/S for therex MT: PROM into flexion with overpressure x7' L knee AROM: Extension: full Flexion: 85 deg PROM flexion: 90 deg Gait: decreased WB on L LE with lateral sway with cane Assessment: Pt has attended / Rx sessions with slow progress with PROM of L knee flexion that is 90 deg with overpressure. Pt doesn't tolerate overpressure enough to make significant progress with knee flexion ROM goals due to pain response. Pt has full extension to meet that goal. Pt will need more authorized visits to continue with therapy the day after the KASSANDRA to work on flexion ROM. Plan: Request additional visits x8 to progress with knee flexion ROM goals. Procedure Charges Therapeutic Exercise 30 minutes: Yes
--- NOTE | 2024-09-20 13:27 | PT.ODS1RPT ---
PT OP Progress/Discharge Note Date of Service: 09/20/24 Progress Note/DC Note Progress Note/Discharge Note: Progress Note Patient Information Visit Reasons: Left total knee Service Continue Service or Discharge: Continue Service Discharge Date: 09/12/24 Status Subjective: Pain with bending the knee. Ambulating with cane. She had KASSANDRA yesterday Objective: See F/S for therex MT: PROM into flexion with overpressure x10' L knee AROM: Extension: full Flexion: 85 deg PROM flexion: 90 deg Gait: decreased WB on L LE with lateral sway with cane Assessment: Pt was authorized for 12 more Rx sessions and had KASSANDRA yesterday. Today she got to PROM of L knee flexion that is 90 deg with overpressure. Pt doesn't tolerate enough overpressure to make significant progress with knee flexion ROM goals due to pain response. PT encouraged to tolerate more pain to progress with ROM. Plan: Continue per POC with additional authorized visits Procedure Charges OP PT Re-evaluation: Yes
== END 2024-09-21 23:59 | disposition home or self-care (01) ==
LOC: CPTX 11:30
PROVIDERS: PCP Orthopaedic Surgery Adult Reconstructive Orthopaedic Surgery; Referring Provider Orthopaedic Surgery Adult Reconstructive Orthopaedic Surgery; Visit Provider Orthopaedic Surgery Adult Reconstructive Orthopaedic Surgery
DX: M25.562 Pain in left knee (principal); Z96.652 Presence of left artificial knee joint; M17.12 Unilateral primary osteoarthritis, left knee
CPT/HCPCS: 97110; 97164

== ENCOUNTER 2024-10-04 09:37 | Outpatient (AMB) | payer MEDICARE, MEDICAID, SELFPAY ==
--- NOTE | 2024-10-04 09:55 | PD.ORTHCLVIS ---
Vital signs 10/04/24 09:57 Height 1.5 m Height Method Stated Weight 90.718 kg Weight Measurement Method Standing Scale BMI 40.3 BP 142/85 H Blood Pressure Source Automatic Cuff Blood Pressure Location Left Upper Arm Position Sitting Respiration 19 Pulse 78 Pulse Source Monitor Temp 96.8 F Temp Source Temporal Artery Scan Pulse Oximetry (%) 99 Oxygen Delivery Method Room Air Med/Allergies Allergies & Medications Allergies No Known Drug Allergies Allergy (Verified 10/04/24 10:00) Medication Reconciliation levothyroxine 25 mcg capsule 25 mcg PO QDAY 05/22/24 [History Confirmed 10/04/24] acetaminophen 500 mg tablet (Acetaminophen Extra Strength) 1,000 mg (2 x 500 mg) PO Q6H PRN pain #90 tabs 09/14/24 [Rx Confirmed 10/04/24] acetaminophen 500 mg tablet (Acetaminophen Extra Strength) 1,000 mg (2 x 500 mg) PO Q6H PRN pain #90 tabs 09/19/24 [Rx Confirmed 10/04/24] oxycodone 5 mg tablet 5 mg PO Q6H PRN pain #14 tabs 09/19/24 [Rx Confirmed 10/04/24] Exam Exam Patient is in no acute distress and is cooperative with the examination today. Breathing is nonlabored. In no respiratory distress. Bilateral extremities were evaluated and demonstrates sensation intact to light touch. Palpable pedal pulses are present. No significant edema is present. Bilateral hips were examined. The patient has no pain with log roll of the hips. Internal rotation to 30 degrees and external rotation to 30 degrees is painless. Negative FADIR. Left knee incision is clean dry and intact. Range of motion 0 to 110 degrees Left knee xrays demonstrate a left total knee replacement that is in Good position and alignment Assessment and Plan Problem List (1) Arthritis of left knee: Status: Acute Plan: Patient is a 59-year-old female with severe left knee arthritis. She is doing well status post left total knee replacement Manipulation under anesthesia. Her range of motion is significant improved. She should continue work with therapy. We will continue with physical therapy Office Procedures GNS Level of Care Nursing/Assessment Patient Status: Established Patient Nursing Assessment/Reassesment: Medication Reconciliation, Update PMH in EMR and Vital Signs Coordination of Care: Complex Care and Chronic Disease 1-5, Education Complex Pt/Fam, Consent,records obtained, informed consent, Results/Orders obtained and Staff clarify orders Special Needs: Language special needs Established Patient Charge Established Patient Point Assignment: 95 Established Patient Point Charge: EP Level 3 (80-115) MA Intake Visit Data Collection New Patient or Established: Established Patient (seen at [facility] within 3 years) Reason for Visit:: F/U KNEE MANIPULATION LEFT 2 WEEKS Seen by Clinical Staff ONLY (RN/MA): No Psychologist Educational Required: Yes PCP or OBGYN visit in last 3 months: Yes Hx Now: No Do You Feel Safe at Home: Yes Authorities Contacted: N/A Questionairres Past Medical History Past Medical History Have you ever been diagnosed with any of the following: Neurological Problems Seizures: No Cardiology Problems Hypercholesterolemia: Yes (diet control) Congestive Heart Failure: No Varicose Veins: Yes Respiratory Problems Chronic Obstructive Pulmonary Disease (COPD): No Smoking: No Smoking Exposure: No Stomache/Intestinal Problems Hepatitis: Yes (has treatment for a yr, does not know which kind) Gastroesophageal Reflux Disease: Yes Obesity: Yes Genital/Urinary Problems Renal Disease: No Reproductive Problems Previous Pregnancies: Yes Musculoskeletal Problems Arthritis: Yes Endocrine Problems Diabetes Mellitus Type 1: No Diabetes Mellitus Type 2: No Hypothyroidism: Yes Other Problems Hospitalization: No Shingles: No Blood Transfusions: No Blood Transfusion Reaction: No Anesthesia Reactions: No Chicken Pox: Yes Cancer: No Subjective Visit Visit for: follow up visit and knee Immunization / Flu Flu Vaccine in the Last 12 Months: No Flu Vaccine Exclusion Criteria: No Exclusion Criteria History of Present Illness Chief complaint: Manipulation Patient is 2 weeks status post manipulation under anesthesia for the left total knee replacement. She is doing well. Reports that she is significantly better. She is working with therapy aggressively Pain Pain level (0-10): 3 Pain duration: ON AND OFF Pain location: outside (lateral) and posterior Pain quality: aching Ambulatory data Ambulatory device: cane Treatments Improvement with previous injections: No Improvement with PT: No Improvement with NSAIDS: no Review of Systems Review of Systems: All systems negative unless otherwise noted in HPI.
[2024-10-04 09:57] VITALS: BP 142/85; PULSE 78; RESP 19; TEMP 36; O2SAT 99; BMI 40.3
== END 2024-10-04 10:04 | disposition home or self-care (01) ==
LOC: HODSRG 09:37
PROVIDERS: PCP Internal Medicine; Referring Provider Internal Medicine; Supervising Provider Orthopaedic Surgery Adult Reconstructive Orthopaedic Surgery; Visit Provider Orthopaedic Surgery Adult Reconstructive Orthopaedic Surgery
DX: M17.12 Unilateral primary osteoarthritis, left knee (principal); E78.00 Pure hypercholesterolemia, unspecified
CPT/HCPCS: 99213; G0463

== ENCOUNTER 2024-10-15 11:30 | Outpatient (RCR) | payer MEDICARE, MEDICAID, SELFPAY ==
--- NOTE | 2024-09-24 15:48 | PT.ODAYNRPT ---
PT Outpatient Daily Note OP Daily Note Outpatient Physical Therapy Treatment Date: 09/24/24 Visit Reasons: Left total knee Subjective: Pt reports taking pain meds but still has knee pain and stiffness. Objective: Please see flow sheet for ther ex list. Assessment: Pt demonstrates poor tolerance with PROM into flexion, able to reach ~85 deg of knee flexion. Pt educated on the importance of early mobilizatoin of R knee especially after her manipulation to maximize ROM potential. Pt continues to be highly guarded during PROM resulting in slow progress. Plan: Continue with pOC. Length of Time (minutes) of Treatment: 30 Minutes Procedure Charges Therapeutic Exercise 30 minutes: Yes
--- NOTE | 2024-09-26 14:10 | PT.ODAYNRPT ---
PT Outpatient Daily Note OP Daily Note Outpatient Physical Therapy Treatment Date: 09/26/24 Visit Reasons: Left total knee Subjective: Pain with bending the knee Objective: See F/S for therex MT: PROM into flexion with overpressure x5' Assessment: PROM of L knee flexion is almost 90 deg with overpressure. Pt doesn't tolerate overpressure enough to make significant progress with knee flexion ROM goals. Plan: Improve L knee flexion ROM Length of Time (minutes) of Treatment: 30 Minutes Procedure Charges Therapeutic Exercise 30 minutes: Yes
--- NOTE | 2024-10-01 10:10 | PTNOTE_ITS ---
PT Outpatient Daily Note OP Daily Note Outpatient Physical Therapy Treatment Date: 10/01/24 Visit Reasons: Left total knee Subjective: Pain with bending the knee Objective: See F/S for therex MHP: x7' L knee Assessment: Slow progress with PROM of L knee flexion that is almost 90 deg with overpressure. High guarding with manual therapy and pain response limits prog ress. Plan: Improve L knee flexion ROM Length of Time (minutes) of Treatment: 30 Minutes Procedure Charges Therapeutic Exercise 30 minutes: Yes
--- NOTE | 2024-10-04 11:08 | PT.ODAYNRPT ---
PT Outpatient Daily Note OP Daily Note Outpatient Physical Therapy Treatment Date: 10/04/24 Visit Reasons: Left total knee Subjective: Pt reports she had a follow up with surgeon, surgeon content with current progress scheduled a follow up in a month. Objective: Please see flow sheet for ther ex list. Assessment: Pt encouraged to perform seated knee flexion exercise for HEP, pt was able to replicate with good technique. Plan: Continue with POC. Length of Time (minutes) of Treatment: 30 Minutes Procedure Charges Therapeutic Exercise 30 minutes: Yes
--- NOTE | 2024-10-08 11:13 | PT.ODAYNRPT ---
PT Outpatient Daily Note OP Daily Note Outpatient Physical Therapy Treatment Date: 10/08/24 Visit Reasons: Left total knee Subjective: Pt saw provider who said she will need the other knee replaced once this one is stronger. Objective: See F/S for therex Assessment: Improving strength of L knee with step ups and lunging. Plan: Improve L knee flexion ROM and strength Length of Time (minutes) of Treatment: 30 Minutes Procedure Charges Therapeutic Exercise 30 minutes: Yes
--- NOTE | 2024-10-10 15:42 | PT.ODAYNRPT ---
PT Outpatient Daily Note OP Daily Note Outpatient Physical Therapy Treatment Date: 10/10/24 Visit Reasons: Left total knee Subjective: Pt saw surgeon who said she will need the other knee replaced once this one is stronger. Objective: See F/S for therex Assessment: Improving strength of L knee with step ups and lunging. Plan: Improve L knee flexion ROM and strength Procedure Charges Therapeutic Exercise 30 minutes: Yes
--- NOTE | 2024-10-15 13:58 | PT.ODS1RPT ---
PT OP Progress/Discharge Note Date of Service: 10/15/24 Progress Note/DC Note Progress Note/Discharge Note: DC Note Patient Information Visit Reasons: Left total knee Service Continue Service or Discharge: Continue Service Discharge Date: 09/12/24 Status Subjective: Pain with bending the knee. Ambulating with cane. Objective: See F/S for therex L knee AROM: Extension: full Flexion: 85 deg PROM flexion: 90 deg Gait: decreased WB on L LE with lateral sway with cane Assessment: Pt has attended visits and progress with L knee ROM has plateaued. PROM of L knee flexion is 90 deg with overpressure. Pt doesn't tolerate enough manual overpressure to make significant progress with knee flexion ROM goals due to pain response. She is ambulating community distances to meet that goal. Plan: D/C with HEP Procedure Charges Therapeutic Exercise 30 minutes: Yes
== END 2024-10-22 23:59 | disposition home or self-care (01) ==
LOC: CPTX 11:30
PROVIDERS: PCP Orthopaedic Surgery Adult Reconstructive Orthopaedic Surgery; Referring Provider Orthopaedic Surgery Adult Reconstructive Orthopaedic Surgery; Visit Provider Orthopaedic Surgery Adult Reconstructive Orthopaedic Surgery
DX: M25.562 Pain in left knee (principal); Z96.652 Presence of left artificial knee joint; M17.12 Unilateral primary osteoarthritis, left knee
CPT/HCPCS: 97110

== ENCOUNTER 2024-11-06 09:31 | Outpatient (AMB) | payer MEDICARE, MEDICAID, SELFPAY ==
--- NOTE | 2024-11-06 09:46 | PD.ORTHCLVIS ---
Vital signs 11/06/24 09:47 Height 1.5 m Height Method Stated Weight 91.2 kg Weight Measurement Method Standing Scale BMI 40.5 BP 145/88 H Blood Pressure Source Automatic Cuff Blood Pressure Location Left Upper Arm Position Sitting Respiration 18 Pulse 78 Pulse Source Monitor Temp 96.8 F Temp Source Temporal Artery Scan Pulse Oximetry (%) 96 Oxygen Delivery Method Room Air Med/Allergies Allergies & Medications Allergies No Known Drug Allergies Allergy (Verified 11/06/24 09:47) Medication Reconciliation levothyroxine 25 mcg capsule 25 mcg PO QDAY 05/22/24 [History Confirmed 11/06/24] acetaminophen 500 mg tablet (Acetaminophen Extra Strength) 1,000 mg (2 x 500 mg) PO Q6H PRN pain #90 tabs 09/14/24 [Rx Confirmed 11/06/24] acetaminophen 500 mg tablet (Acetaminophen Extra Strength) 1,000 mg (2 x 500 mg) PO Q6H PRN pain #90 tabs 09/19/24 [Rx Confirmed 11/06/24] oxycodone 5 mg tablet 5 mg PO Q6H PRN pain #14 tabs 09/19/24 [Rx Confirmed 11/06/24] Exam Exam Patient is in no acute distress and is cooperative with the examination today. Breathing is nonlabored. In no respiratory distress. Bilateral extremities were evaluated and demonstrates sensation intact to light touch. Palpable pedal pulses are present. No significant edema is present. Bilateral hips were examined. The patient has no pain with log roll of the hips. Internal rotation to 30 degrees and external rotation to 30 degrees is painless. Negative FADIR. Left knee incision is clean dry and intact. Range of motion 0 to 110 degrees Left knee xrays demonstrate a left total knee replacement that is in Good position and alignment Assessment and Plan Problem List (1) Arthritis of left knee: Status: Acute Plan: Patient is a 59-year-old female with severe left knee arthritis. She is doing well status post left total knee replacement Manipulation under anesthesia. Her range of motion is significant improved. She should continue work with therapy. We also discussed replacing her right knee. She will call us when she is ready. She reports the pain is starting to affect her quality of life and happiness Office Procedures GNS Level of Care Nursing/Assessment Patient Status: Established Patient Nursing Assessment/Reassesment: Medication Reconciliation, Update PMH in EMR and Vital Signs Coordination of Care: Complex Care and Chronic Disease 1-5, Education Complex Pt/Fam, Consent,records obtained, informed consent, Results/Orders obtained and Staff clarify orders Special Needs: Language special needs Established Patient Charge Established Patient Point Assignment: 95 Established Patient Point Charge: EP Level 3 (80-115) MA Intake Visit Data Collection New Patient or Established: Established Patient (seen at [facility] within 3 years) Reason for Visit:: F/U KNEE MANIPULATION Seen by Clinical Staff ONLY (RN/MA): No 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 PCP or OBGYN visit in last 3 months: Yes Hx Now: No Do You Feel Safe at Home: Yes Authorities Contacted: N/A Questionairres Past Medical History Past Medical History Have you ever been diagnosed with any of the following: Neurological Problems Seizures: No Cardiology Problems Hypercholesterolemia: Yes (diet control) Congestive Heart Failure: No Varicose Veins: Yes Respiratory Problems Chronic Obstructive Pulmonary Disease (COPD): No Smoking: No Smoking Exposure: No Stomache/Intestinal Problems Hepatitis: Yes (has treatment for a yr, does not know which kind) Gastroesophageal Reflux Disease: Yes Obesity: Yes Genital/Urinary Problems Renal Disease: No Reproductive Problems Previous Pregnancies: Yes Musculoskeletal Problems Arthritis: Yes Endocrine Problems Diabetes Mellitus Type 1: No Diabetes Mellitus Type 2: No Hypothyroidism: Yes Other Problems Hospitalization: No Shingles: No Blood Transfusions: No Blood Transfusion Reaction: No Anesthesia Reactions: No Chicken Pox: Yes Cancer: No Subjective Visit Visit for: follow up visit and knee Immunization / Flu Flu Vaccine in the Last 12 Months: No Flu Vaccine Exclusion Criteria: No Exclusion Criteria History of Present Illness Chief complaint: Bilateral knee pain Bryn is a pleasant 59-year-old female who is status post left total knee replacement approximately 4 months ago. This was complicated by stiffness and she will underwent manipulation under anesthesia. Her range of motion is significantly improved and she has completed physical therapy. She reports she is having sciatica and radicular symptoms down the left lower leg. She is being seen currently for this. She reports the right knee is affecting her quality life and happiness and she would want to get this replaced very soon Pain Pain level (0-10): 2 Pain duration: COMES AND GOES Pain location: anterior Pain quality: aching Associated signs & symptoms: numbness Ambulatory data Ambulatory device: cane Treatments Improvement with previous injections: No Improvement with PT: No Improvement with NSAIDS: no Review of Systems Review of Systems: All systems negative unless otherwise noted in HPI.
[2024-11-06 09:47] VITALS: BP 145/88; PULSE 78; RESP 18; TEMP 36; O2SAT 96; BMI 40.5
== END 2024-11-06 09:58 | disposition home or self-care (01) ==
LOC: HODSRG 09:31
PROVIDERS: PCP Internal Medicine; Referring Provider Internal Medicine; Supervising Provider Orthopaedic Surgery Adult Reconstructive Orthopaedic Surgery; Visit Provider Orthopaedic Surgery Adult Reconstructive Orthopaedic Surgery
DX: M17.12 Unilateral primary osteoarthritis, left knee (principal); Z96.652 Presence of left artificial knee joint; E78.00 Pure hypercholesterolemia, unspecified; E03.9 Hypothyroidism, unspecified; K21.9 Gastro-esophageal reflux disease without esophagitis
CPT/HCPCS: 99213; G0463

== ENCOUNTER 2025-02-15 09:41 | Outpatient (AMB) | payer MEDICARE, SELFPAY ==
--- NOTE | 2025-02-15 09:56 | PD.ORTHCLVIS ---
Vital signs 02/15/25 09:57 Height 1.5 m Height Method Stated Weight 95.311 kg Weight Measurement Method Standing Scale BMI 42.3 BP 168/80 H Blood Pressure Source Automatic Cuff Blood Pressure Location Left Upper Arm Position Sitting Respiration 18 Pulse 74 Pulse Source Monitor Temp 97.5 F Temp Source Temporal Artery Scan Pulse Oximetry (%) 98 Oxygen Delivery Method Room Air Med/Allergies Allergies & Medications Allergies No Known Drug Allergies Allergy (Verified 02/15/25 09:57) Medication Reconciliation levothyroxine 25 mcg capsule 25 mcg PO QDAY 05/22/24 [History Confirmed 02/15/25] acetaminophen 500 mg tablet (Acetaminophen Extra Strength) 1,000 mg (2 x 500 mg) PO Q6H PRN pain #90 tabs 09/19/24 [Rx Confirmed 02/15/25] oxycodone 5 mg tablet 5 mg PO Q6H PRN pain #14 tabs 09/19/24 [Rx Confirmed 02/15/25] Exam Exam Patient is in no acute distress and is cooperative with the examination today. Breathing is nonlabored. In no respiratory distress. Bilateral extremities were evaluated and demonstrates sensation intact to light touch. Palpable pedal pulses are present. No significant edema is present. Bilateral hips were examined. The patient has no pain with log roll of the hips. Internal rotation to 30 degrees and external rotation to 30 degrees is painless. Negative FADIR. Left knee incision is clean dry and intact. Range of motion 0 to 110 degrees Right knee is tender to palpation medially. Range of motion is 0 to 100 degrees. The knee feels stable to varus and valgus stress as well as AP translation X-rays of the right knee demonstrate complete joint space obliteration medially. Osteophytes are present Assessment and Plan Problem List (1) Arthritis of left knee: Status: Acute Plan: Patient is a 59-year-old female with severe bilateral knee arthritis and is status post left total knee replacement. She is doing well. She reports the right knee is affecting her quality life and happiness. She would like to get this replaced. We discussed weight loss in great detail. She did great with the left knee replacement and would like to proceed with the right side as soon as possible. She has failed conservative treatment occluding multiple injections and anti-inflammatories The nature and purpose of the total knee replacement, alternative method(s) of treatment, the material risks involved, and the possibility of complications were fully explained to the patient. The patient does NOT have any of the following contraindications to TKA: - Active infection of the knee joint, OR - Active systemic bacteremia, OR - Active skin infection or open wound at surgical site, OR - Neuropathic arthritis, OR - Severe, rapidly progressive neurological disease, OR - Severe medical condition that makes risks of surgery outweigh the potential benefit The patient was told the most common risks and complications associated with a total knee replacement include, but are not limited to: blood clots in the leg, fatal pulmonary embolism, dislocation of the prosthesis, intraoperative and postoperative fractures of the femur or tibia, infection, failure of the prosthesis or grafting materials, complications from anesthesia, reactions to blood transfusions, postoperative leg length inequality, instability of the knee replacement, nerve damage or injury, vascular injury, delayed wound healing, infection, other injury or even . In addition, there are risks associated with anesthesia given during this operation. Also, the patient was told that after undergoing a total knee replacement there may still be persistent pain or disability. The patient was informed that the success of this operation in part depends upon the mechanical devices which are going to be implanted and that these devices can fail or malfunction, and may need to be repaired or replaced and there are no guarantees as to the longevity of this device or its parts and that it or its parts could fail prematurely. The patient was also notified that during the course of surgery, there may be a need to use bone graft from donors, and that any bone graft used will be carefully screened for communicable diseases, including AIDS, hepatitis, Abdirizak-Creutzfeldt, or other diseases, but despite the screening procedures, there is a small chance that they could contract one of these diseases. Finally, the patient was asked to follow completely and fully with all advice and recommended treatments, and that recovery and ultimate outcome are affected by their compliance with recommended treatment. We discussed the risks, benefits and treatment alternatives, and the patient is interested in proceeding with surgery. We will try to set this up as expeditiously as possible. Office Procedures GNS Level of Care Nursing/Assessment Patient Status: Established Patient Nursing Assessment/Reassesment: Medication Reconciliation, Update PMH in EMR and Vital Signs Coordination of Care: Complex Care and Chronic Disease 1-5, Education Complex Pt/Fam, Consent,records obtained, informed consent, Results/Orders obtained and Staff clarify orders Special Needs: Language special needs Established Patient Charge Established Patient Point Assignment: 95 Established Patient Point Charge: EP Level 3 (80-115) MA Intake Visit Data Collection New Patient or Established: Established Patient (seen at 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 PCP or OBGYN visit in last 3 months: Yes Hx Now: No Do You Feel Safe at Home: Yes Authorities Contacted: N/A Questionairres Past Medical History Past Medical History Have you ever been diagnosed with any of the following: Neurological Problems Seizures: No Cardiology Problems Hypercholesterolemia: Yes (diet control) Congestive Heart Failure: No Varicose Veins: Yes Respiratory Problems Chronic Obstructive Pulmonary Disease (COPD): No Smoking: No Smoking Exposure: No Stomache/Intestinal Problems Hepatitis: Yes (has treatment for a yr, does not know which kind) Gastroesophageal Reflux Disease: Yes Obesity: Yes Genital/Urinary Problems Renal Disease: No Reproductive Problems Previous Pregnancies: Yes Musculoskeletal Problems Arthritis: Yes Endocrine Problems Diabetes Mellitus Type 1: No Diabetes Mellitus Type 2: No Hypothyroidism: Yes Other Problems Hospitalization: No Shingles: No Blood Transfusions: No Blood Transfusion Reaction: No Anesthesia Reactions: No Chicken Pox: Yes Cancer: No Surgical History Total Knee Replacement: Yes (LEFT 2024) Subjective Visit Visit for: follow up visit and knee Immunization / Flu Flu Vaccine in the Last 12 Months: No Flu Vaccine Exclusion Criteria: No Exclusion Criteria History of Present Illness Chief complaint: Bilateral knee pain Bryn is a pleasant 59-year-old female who is status post left total knee replacement approximately 5 months ago. She is doing well. She reports the right knee is affecting her quality life and happiness. She has [place] arthritis on the right. She has tried multiple injections, physical therapy, and anti-inflammatories. She has persistent pain and the injections are no longer working for more than 2 months. Pain Pain level (0-10): 6 (RIGHT KNEE) Pain duration: COMES AND GOES Pain location: anterior Pain quality: dull and aching Pain timing: increases with activity Associated signs & symptoms: numbness Ambulatory data Ambulatory device: none Treatments Number of previous injections: 2 Improvement with previous injections: No Improvement with PT: No Improvement with NSAIDS: no Review of Systems Review of Systems: All systems negative unless otherwise noted in HPI.
[2025-02-15 09:57] VITALS: BP 168/80; PULSE 74; RESP 18; TEMP 36.4; O2SAT 98; BMI 42.3
== END 2025-02-15 10:12 | disposition home or self-care (01) ==
LOC: HODSRG 09:41
PROVIDERS: PCP Internal Medicine; Referring Provider Internal Medicine; Supervising Provider Orthopaedic Surgery Adult Reconstructive Orthopaedic Surgery; Visit Provider Orthopaedic Surgery Adult Reconstructive Orthopaedic Surgery
DX: M17.0 Bilateral primary osteoarthritis of knee (principal); Z96.652 Presence of left artificial knee joint
CPT/HCPCS: 99213; G0463

== ENCOUNTER → 2025-03-01 | Outpatient (CLI) | payer MEDICARE, SELFPAY ==
--- NOTE | 2025-03-01 | XR_ITS ---
Examination: CT right lower extremity, without contrast. 2-D sagittal reconstructions. 2-D coronal reconstructions. 3-D reconstructions. Date and time of exam:March 11, 2025 1248 hours INDICATIONS: Diagnosis right knee unilateral osteoarthritis several years right knee pain several years CTDI: vol (mGy):41.24 DLP: (mGycm):1433 Technique: Multiple 1.25 mm axial sections of the right lower extremity without intravenous contrast have been obtained. 2-D sagittal and coronal reconstructions have been obtained. 3-D reconstructions have been obtained. Low dose protocols were performed. One or more of the following dose reduction techniques were used; automated exposure control, adjustment of the mA and/or KV according to patient size, use of iterative reconstruction technique. Findings: Mild to moderate narrowing hip joints No hip fractures Severe narrowing medial joint space right knee Advanced osteoarthritis lateral and patellofemoral joints No fractures IMPRESSION: Advanced tricompartment osteoarthritis right knee including severe narrowing medial joint space
== END | disposition home or self-care (01) ==
PROVIDERS: PCP Orthopaedic Surgery Adult Reconstructive Orthopaedic Surgery; Referring Provider Orthopaedic Surgery Adult Reconstructive Orthopaedic Surgery; Visit Provider Orthopaedic Surgery Adult Reconstructive Orthopaedic Surgery
DX: M17.11 Unilateral primary osteoarthritis, right knee (principal); M25.861 Other specified joint disorders, right knee
CPT/HCPCS: 73700

== ENCOUNTER 2025-03-06 06:50 | Day surgery (SDC) | payer MEDICARE, MEDICAID, SELFPAY ==
[2025-03-05 08:20] VITALS: BMI 40.5
--- NOTE | 2025-03-05 08:29 | EKG_ITS ---
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
[2025-03-05 11:27] LABS: Basophils # (Auto) 0.1 Thou/mm3 (0.0-0.2); Basophils % (Auto) 1 % (0-2.5); Eosinophils # (Auto) 0.1 Thou/mm3 (0.0-0.5); Eosinophils % (Auto) 2 % (0-10); Hematocrit 43.9 % (36.0-46.0); Hemoglobin 14.5 g/dL (12.0-16.0); INR 1.1 (0.9-1.3); Immature Granulocytes Auto 0.02 Thou/mm3 (0.00-0.00); Lymphocytes # (Auto) 2.3 Thou/mm3 (1.0-4.8); Lymphocytes % (Auto) 40 % (10-50); Mean Corpuscular HGB Conc 33.0 g/dl (31.0-37.0); Mean Corpuscular Hemoglobin 30.1 pg (25.0-35.0); Mean Corpuscular Volume 91 fL (80-100); Monocytes # (Auto) 0.4 Thou/mm3 (0.0-0.8); Monocytes % (Auto) 8 % (0-12); Neutrophils # (Auto) 2.8 Thou/mm3 (1.8-7.7); Neutrophils % (Auto) 50 % (37-80); Nucleated Red Blood Cell # 0.00 Thou/mm3 (0.00-0.00); Nucleated Red Blood Cell % 0 /100 WBC (0); Partial Thromboplastin Time 29.4 Seconds (22.0-36.0); Platelet Count 302 Thou/mm3 (140-440); Prothrombin Time 11.5 Seconds (9.0-12.2); RDW Standard Deviation 41.6 fL (36.4-46.3); Red Blood Count 4.82 Miln/mm3 (4.00-5.20); White Blood Count 5.7 Thou/mm3 (3.6-11.0)
[2025-03-05 11:42] LABS: Alanine Aminotransferase 9 U/L (10-49); Albumin, Serum 4.4 gm/dL (3.4-4.8); Albumin/Globulin Ratio 1.8 (1.2-2.2); Alkaline Phosphatase 118 U/L (46-116); Anion Gap 9 (7-16); Aspartate Amino Transferase 22 U/L (0-34); BUN/Creatinine Ratio 23 Ratio (12-20); Bilirubin,Total 1.4 mg/dL (0.3-1.2); Blood Urea Nitrogen 16 mg/dL (9-23); Calcium 9.4 mg/dL (8.3-10.6); Calcium (Corrected) 9.4 mg/dL (8.5-10.1); Carbon Dioxide 29.7 mMol/L (20.0-31.0); Chloride 105 mMol/L (98-107); Creatinine (Component) 0.7 mg/dL (0.6-1.3); Estimated Creatinine Clearance 85.4 mL/min (>60); Globulin 2.4 gm/dL (2.3-3.5); Glucose 96 mg/dL (74-106); Osmolality,Calculated 288 (275-295); Potassium 4.0 mMol/L (3.4-5.1); Sodium 144 mMol/L (136-145); Total Protein 6.8 gm/dL (5.7-8.2); eGFR > 60 See Note
[2025-03-06] VITALS (15 sets, daily range): BP systolic 114–154; BP diastolic 67–94; PULSE 60–88; RESP 12–24; TEMP 36.2–36.6; O2SAT 96–99; BMI 40.5
[2025-03-06] MEDS: RINGERS LACTATED 1000 ML 1,000 ML 20 ML IV (07:49)
[2025-03-06] MEDS: ACETAMINOPHEN 325 MG TABLET 650 MG PO (07:50)
[2025-03-06] MEDS: MELOXICAM 7.5 MG TABLET PO (07:50)
[2025-03-06] MEDS: PREGABALIN 75 MG CAPSULE PO (07:50)
--- NOTE | 2025-03-06 08:15 | CHAP ---
Prayed with patient concerning upcoming procedure.
--- NOTE | 2025-03-06 10:43 | XR_ITS ---
Examination: Right knee 2 views Technique one AP lateral right knee 2 views Date and time: March 06, 2025 1126 hours INDICATIONS: Postop right knee replacement today. FINDINGS: Total right hip opacity. Satisfactory alignment. No fracture. IMPRESSION: Total right knee arthroplasty with satisfactory alignment
--- NOTE | 2025-03-06 10:45 | PD.SUROPNT ---
Date of Procedure 03/06/25 Pre Op Diagnosis right knee osteoarthritis Post Op Diagnosis right knee osteoarthritis Procedure right total knee replacement Findings full thickness cartilage loss and osteophytes Procedure Description Indication: The patient is a 60 year old who has a long history of right knee pain. X-rays show degenerative arthritis involving the knee. Over the past several years the patient has had increasing pain, progressive limitation in function. He has failed conservative measures including activity modification, physical therapy, injections, anti-inflammatories, and assistive devices. After a lengthy discussion of the risks and benefits, the patient presents now for total knee replacement. The nature and purpose of the total knee replacement, alternative method(s) of treatment, the material risks involved, and the possibility of complications were fully explained to the patient. The patient was told the most common risks and complications associated with a total knee replacement include, but are not limited to blood clots in the leg, fatal pulmonary embolism, dislocation of the prosthesis, intraoperative and postoperative fractures of the femur or tibia, infection, failure of the prosthesis or grafting materials, complications from anesthesia, reactions to blood transfusions, postoperative leg length inequality, instability of the knee replacement, nerve damage or injury, vascular injury, delayed wound healing, infections, other injury or even . In addition, there are risks associated with anesthesia given during this operation, temporary or permanent numbness on the skin lateral to the incision can be a complication unique to total knee surgery, and kneeling can be painful after knee replacement surgery. Also, the patient was told that after undergoing a total knee replacement there may still be pain or disability. We discussed with the patient that we will be using a robot-assisted technology. We discussed that there is a possibility of converting to manual instrumentation. The patient was informed that the success of this operation in part depends upon the mechanical devices which are going to be implanted and that these devices can fail or malfunction, and may need to be repaired or replaced and there are no guarantees as to the longevity of this device or its part and that it or its parts could fail prematurely. Finally, the patient was asked to follow completely and fully with all advice and recommended treatments, and that recovery and ultimate outcome are affected by their compliance with recommended treatment. Surgical technique: Patient was marked and consented in the pre-operative area. The patient was brought to the operating room and placed on the operating table in a supine position. Prior to positioning, a timeout procedure was performed between the surgeon, the anesthesiologist, and the nursing staff where the patient and the operative side were identified and confirmed. After adequate general anesthetic was obtained, the rightlower extremity was prepped and draped in the usual sterile fashion. A weight based dose of Cefazolin were administered within 1 hour prior to incision. The robot was preregistered and calirated before the incision. The extremity was exsanguinated with an esmarch badge and tourniquet inflated to 250mmHg. A midline incision was made. A median parapatellar arthrotomy was made. The patella was subluxed laterally. A medial release was performed to expose the medial tibia. His femoral and tibial pins were placed through an intra incisional manner for both cases. Every effort was made to ensure that the distalmost aspect of the pin was hung in the second cortex. The arrays were then tightened several times to ensure that it was fixed for the remainder of the case. Both femoral and tibial checkpoints were then placed. We then went through the registration process of the bone. We then assessed the knee deformity and attempted to correct it. We also used the robot to aid in judging laxity in both extension and flexion. Final based on laxity and alignment we changed the preoperative assessment to obtain proper proper implant positioning and to correct deformity. Attention was then placed to the tibia. We made a tibial cut using the robot ensuring that both the MCL and the patella tendon were protected with retractors. We then went to the femur and made the posterior cut followed by the anterior cut and the anterior chamfer. The bone was then removed and we made a distal femur cut and a posterior chamfer cut. We verified all cuts. A trial reduction was performed with a size 4 femoral component and a size 3 keeled tibial component. The patella was cut and sized to a 33. The patella tracked centrally, and no lateral retinacular release was necessary. The trial implants were removed. The arrays, pins, and checkpoints were all removed. We performed a verification that all pins were removed. The cut bone surfaces were lavaged. A size 3 left femoral component, a size 3 keeled tibial component, were impacted into position. A size 33 patella was cemented into posiution The knee was felt to be well balanced in the sagittal and coronal plane. The final 3x10 mm cruciate-substituting articular insert was impacted into the tibial tray. The knee was brought out to full extension, flexed up to 120 degrees. It was stable to varus and valgus stress and appropriately balanced in flexion and extension. The wounds were copiously irrigated following deflation of tourniquet. The medial retinaculum was reapproximated with #1 vicryl and quill. The subcutaneous tissues were closed with 0 and 2-0 interrupted Vicryl. The skin was closed with 3-0 Monofilament V loc suture. A sterile dressing was applied. The patient was transferred to a bed and brought to recovery in stable condition. The patient tolerated the procedure well. There were no intraoperative complications. Sponge and needle counts were correct times 2. As the attending surgeon, I attalma I was present and performed the entire operation. Grafts/Implants Size 4 CR Femur Size 3 Tibia 10mm poly CS 33mm patella Anesthesia spinal Implants nathaly cementless implants, cemented patella Pathology / specimen None Pathology comment: none Estimated Blood Loss 150 Surgeon Kd Oseguera MD Surgical Staff Operation Date: 03/06/25 10:00 Case Staff Anesthesiologist: Ike Hoang RN First Assistant: Justine Clayton
--- NOTE | 2025-03-06 11:12 | SUR.PHASEI ---
pt received from OR in recovery bay 1. pt asleep but responds to voice, breathing unlabored on oxymask 8l. v/s stable. pt dressing to right lower extremity cdi. report received from Dr. Hoang and Gustabo MIRANDA.
[2025-03-06] MEDS: HYDROmorphone INJ 2 MG/ML VIAL 0.4 MG IVP ×2 (11:29→11:51)
--- NOTE | 2025-03-06 12:03 | SUR.PHASEII ---
pt able to tolerate oral fluids without difficulty swallowing or nausea/vomiting.
[2025-03-06] MEDS: oxyCODONE HCL 5 MG IR TAB PO (12:48)
--- NOTE | 2025-03-06 14:45 | SUR.PHASEII ---
pt awake and alert, breathing unlabored on room air. v/s stable. pt dressing to right lower extremity cdi. pt cleared by physical therapist Rocky. pt able to ambulate in PACU hallway using walker. d/c instructions given with Celestino in room using economics lecturer Chandler toth, all questions answered. pt d/c via wheelchair with all belongings.
== END 2025-03-06 14:45 | disposition home or self-care (01) ==
PROVIDERS: Anesthesiology; PCP Internal Medicine; Referring Provider Orthopaedic Surgery Adult Reconstructive Orthopaedic Surgery; Visit Provider Orthopaedic Surgery Adult Reconstructive Orthopaedic Surgery
PROC: (CPT 27447; principal; 2025-03-06 09:45)
DX: M17.11 Unilateral primary osteoarthritis, right knee (principal); M25.761 Osteophyte, right knee; Z01.810 Encounter for preprocedural cardiovascular examination; E78.00 Pure hypercholesterolemia, unspecified
CPT/HCPCS: 27447; 20985; 36415; 73560; 80053; 85025; 85610; 85730; 93005; 97162; A4217; C1713; C1776; J0690; J1100; J1171; J1885; J2250; J2405; J2704; J2795; J3010; J3490; J7120; J7999; A4648; A4649; A9270

== ENCOUNTER 2025-03-21 11:07 | Outpatient (AMB) | payer MEDICARE, SELFPAY ==
[2025-03-21 11:33] VITALS: BP 106/74; PULSE 92; RESP 18; TEMP 36.5; O2SAT 97; BMI 40.4
--- NOTE | 2025-03-21 11:33 | PD.ORTHCLVIS ---
Vital signs 03/21/25 11:33 Height 1.52 m Height Method Stated Weight 93.242 kg Weight Measurement Method Standing Scale BMI 40.4 BP 106/74 Blood Pressure Source Automatic Cuff Blood Pressure Location Left Upper Arm Position Sitting Respiration 18 Pulse 92 Pulse Source Monitor Temp 97.7 F Temp Source Temporal Artery Scan Pulse Oximetry (%) 97 Oxygen Delivery Method Room Air Med/Allergies Allergies & Medications Allergies No Known Drug Allergies Allergy (Verified 03/21/25 11:34) shrimp Allergy (Verified 03/21/25 11:34) Swelling of Lip/Tongue/Throat Medication Reconciliation levothyroxine 25 mcg capsule 25 mcg PO QDAY 05/22/24 [History Confirmed 03/21/25] acetaminophen 500 mg tablet (Acetaminophen Extra Strength) 1,000 mg (2 x 500 mg) PO Q6H PRN pain #90 tabs 03/06/25 [Rx Confirmed 03/21/25] aspirin 81 mg tablet,delayed release 81 mg PO BID #60 tabs 03/06/25 [Rx Confirmed 03/21/25] doxycycline hyclate 100 mg tablet 100 mg PO BID #14 tabs 03/06/25 [Rx Confirmed 03/21/25] gabapentin 300 mg capsule 300 mg PO .qhs #30 caps 03/06/25 [Rx Confirmed 03/21/25] sennosides 8.6 mg-docusate sodium 50 mg tablet (Senna-S) 1 tab-cap PO QDAY #30 tabs 03/06/25 [Rx Confirmed 03/21/25] oxycodone 5 mg tablet 5 mg PO Q6H PRN pain #28 tabs 03/21/25 [Rx] Exam Exam Patient is in no acute distress and is cooperative with the examination today. Breathing is nonlabored. In no respiratory distress. Bilateral extremities were evaluated and demonstrates sensation intact to light touch. Palpable pedal pulses are present. No significant edema is present. Bilateral hips were examined. The patient has no pain with log roll of the hips. Internal rotation to 30 degrees and external rotation to 30 degrees is painless. Negative FADIR. Left knee incision is clean dry and intact. Range of motion 0 to 110 degrees right knee incisions clean dry intact. Range of motion 0 to 100 degrees Assessment and Plan Problem List (1) Arthritis of left knee: Status: Acute Plan: Patient is a 59-year-old female with severe bilateral knee arthritis and is status post left total knee replacement and most recently a right total knee replacement. She reports that she is doing well. We will see her back in 6 weeks for routine follow-up Office Procedures GNS Level of Care Nursing/Assessment Patient Status: Established Patient Nursing Assessment/Reassesment: Medication Reconciliation, Update PMH in EMR and Vital Signs Coordination of Care: Complex Care and Chronic Disease 1-5, Education Complex Pt/Fam, Consent,records obtained, informed consent, Results/Orders obtained and Staff clarify orders Special Needs: Language special needs Established Patient Charge Established Patient Point Assignment: 95 Established Patient Point Charge: EP Level 3 (80-115) MA Intake Visit Data Collection New Patient or Established: Established Patient (seen at [facility] within 3 years) Reason for Visit:: F/U KNEE MANIPULATION Seen by Clinical Staff ONLY (RN/MA): No Supervisor Drapery Hanging Required: Yes PCP or OBGYN visit in last 3 months: Yes Hx Now: No Do You Feel Safe at Home: Yes Authorities Contacted: N/A Questionairres Past Medical History Past Medical History Have you ever been diagnosed with any of the following: Neurological Problems Seizures: No Cardiology Problems Hypercholesterolemia: Yes (diet control) Congestive Heart Failure: No Varicose Veins: Yes Respiratory Problems Chronic Obstructive Pulmonary Disease (COPD): No Smoking: No Smoking Exposure: No Stomache/Intestinal Problems Hepatitis: Yes (has treatment for a yr, does not know which kind) Gastroesophageal Reflux Disease: Yes Obesity: Yes Genital/Urinary Problems Renal Disease: No Reproductive Problems Previous Pregnancies: Yes Musculoskeletal Problems Arthritis: Yes Endocrine Problems Diabetes Mellitus Type 1: No Diabetes Mellitus Type 2: No Hypothyroidism: Yes Other Problems Hospitalization: No Shingles: No Blood Transfusions: No Blood Transfusion Reaction: No Anesthesia Reactions: No Chicken Pox: Yes Cancer: No Surgical History Total Knee Replacement: Yes (LEFT 2024) Subjective Visit Visit for: follow up visit and knee Immunization / Flu Flu Vaccine in the Last 12 Months: No Flu Vaccine Exclusion Criteria: No Exclusion Criteria History of Present Illness Chief complaint: Bilateral knee pain pATIENT is a pleasant 60-year-old female who is status post right total knee replacement 2 weeks ago. She is doing well. She reports minimal pain. She is very happy with her progress. She is using a walker and she reports this knee was easier than her last month Pain Pain level (0-10): 6 (RIGHT KNEE) Pain duration: COMES AND GOES Pain location: anterior Pain quality: dull and aching Pain timing: increases with activity Associated signs & symptoms: numbness Ambulatory data Ambulatory device: none Treatments Number of previous injections: 2 Improvement with previous injections: No Improvement with PT: No Improvement with NSAIDS: no Review of Systems Review of Systems: All systems negative unless otherwise noted in HPI.
== END 2025-03-21 11:42 | disposition home or self-care (01) ==
LOC: HODSRG 11:07
PROVIDERS: PCP Internal Medicine; Referring Provider Internal Medicine; Supervising Provider Orthopaedic Surgery Adult Reconstructive Orthopaedic Surgery; Visit Provider Orthopaedic Surgery Adult Reconstructive Orthopaedic Surgery
DX: M17.0 Bilateral primary osteoarthritis of knee (principal); Z96.652 Presence of left artificial knee joint; E78.00 Pure hypercholesterolemia, unspecified; K21.9 Gastro-esophageal reflux disease without esophagitis; E03.9 Hypothyroidism, unspecified; E66.9 Obesity, unspecified; Z68.41 Body mass index [BMI] 40.0-44.9, adult
CPT/HCPCS: 99213; G0463

== ENCOUNTER 2025-04-18 11:08 | Outpatient (AMB) | payer MEDICARE, SELFPAY ==
--- NOTE | 2025-04-18 11:18 | ORTHONT_ITS ---
Vital signs 04/18/25 11:19 Height 1.52 m Height Method Measured Weight 92.76 kg Weight Measurement Method Standing Scale BMI 40.1 BP 117/84 Blood Pressure Source Automatic Cuff Blood Pressure Location Left Upper Arm Position Sitting Respiration 19 Pulse 83 Pulse Source Monitor Temp 98.0 F Temp Source Temporal Artery Scan Pulse Oximetry (%) 98 Oxygen Delivery Method Room Air Med/Allergies Allergies & Medications Allergies No Known Drug Allergies Allergy (Verified 04/18/25 11:20) shrimp Allergy (Verified 04/18/25 11:20) Swelling of Lip/Tongue/Throat Medication Reconciliation levothyroxine 25 mcg capsule 25 mcg PO QDAY 05/22/24 [History Confirmed 04/18/25] aspirin 81 mg tablet,delayed release 81 mg PO BID #60 tabs 03/06/25 [Rx Confirmed 04/18/25] doxycycline hyclate 100 mg tablet 100 mg PO BID #14 tabs 03/06/25 [Rx Confirmed 04/18/25] gabapentin 300 mg capsule 300 mg PO .qhs #30 caps 03/06/25 [Rx Confirmed 04/18/25] sennosides 8.6 mg-docusate sodium 50 mg tablet (Senna-S) 1 tab-cap PO QDAY #30 tabs 03/06/25 [Rx Confirmed 04/18/25] oxycodone 5 mg tablet 5 mg PO Q6H PRN pain #28 tabs 03/21/25 [Rx Confirmed 04/18/25] acetaminophen 500 mg tablet (Acetaminophen Extra Strength) 1,000 mg (2 x 500 mg) PO Q6H PRN pain #90 tabs 04/18/25 [Rx] Exam Exam Patient is in no acute distress and is cooperative with the examination today. Breathing is nonlabored. In no respiratory distress. Bilateral extremities were evaluated and demonstrates sensation intact to light touch. Palpable pedal pulses are present. No significant edema is present. Bilateral hips were examined. The patient has no pain with log roll of the hips. Internal rotation to 30 degrees and external rotation to 30 degrees is painless. Negative FADIR. Left knee incision is clean dry and intact. Range of motion 0 to 110 degrees right knee incisions clean dry intact. Range of motion 0 to 100 degrees Assessment and Plan Problem List (1) Arthritis of left knee: Status: Acute Plan: Patient is a 59-year-old female with severe bilateral knee arthritis and is status post left total knee replacement and most recently a right total knee replacement. She reports that she is doing well. We will see her back in 6 weeks for routine follow-up and we will get a new x- ray today Office Procedures GNS Level of Care Nursing/Assessment Patient Status: Established Patient Nursing Assessment/Reassesment: Medication Reconciliation, Update PMH in EMR and Vital Signs Coordination of Care: Complex Care and Chronic Disease 1-5, Education Complex Pt/Fam, Consent,records obtained, informed consent, Lab and Imaging orders, Results/Orders obtained and Staff clarify orders Special Needs: Language special needs Established Patient Charge Established Patient Point Assignment: 110 Established Patient Point Charge: EP Level 3 (80-115) MA Intake Visit Data Collection New Patient or Established: Established Patient (seen at [facility] within 3 years) Reason for Visit:: 6 WEEK F/U RIGHT TKA Seen by Clinical Staff ONLY (RN/MA): No Head Men'S Tennis Coach Required: Yes PCP or OBGYN visit in last 3 months: Yes Hx Now: No Do You Feel Safe at Home: Yes Authorities Contacted: N/A Questionairres Past Medical History Past Medical History Have you ever been diagnosed with any of the following: Neurological Problems Seizures: No Cardiology Problems Hypercholesterolemia: Yes (diet control) Congestive Heart Failure: No Varicose Veins: Yes Respiratory Problems Chronic Obstructive Pulmonary Disease (COPD): No Smoking: No Smoking Exposure: No Stomache/Intestinal Problems Hepatitis: Yes (has treatment for a yr, does not know which kind) Gastroesophageal Reflux Disease: Yes Obesity: Yes Genital/Urinary Problems Renal Disease: No Reproductive Problems Previous Pregnancies: Yes Musculoskeletal Problems Arthritis: Yes Endocrine Problems Diabetes Mellitus Type 1: No Diabetes Mellitus Type 2: No Hypothyroidism: Yes Other Problems Hospitalization: No Shingles: No Blood Transfusions: No Blood Transfusion Reaction: No Anesthesia Reactions: No Chicken Pox: Yes Cancer: No Surgical History Total Knee Replacement: Yes (LEFT 2024) Subjective Visit Visit for: follow up visit and knee Immunization / Flu Flu Vaccine in the Last 12 Months: No Flu Vaccine Exclusion Criteria: No Exclusion Criteria History of Present Illness Chief complaint: Bilateral knee pain pATIENT is a pleasant 60-year-old female who is status post right total knee replacement 6 weeks ago. She is doing well. She reports minimal pain. She is very happy with her progress. She is using a cane occasionally Pain Pain level (0-10): 6 (RIGHT KNEE) Pain duration: COMES AND GOES Pain location: anterior Pain quality: dull and aching Pain timing: increases with activity Associated signs & symptoms: numbness Ambulatory data Ambulatory device: none Treatments Number of previous injections: 2 Improvement with previous injections: No Improvement with PT: No Improvement with NSAIDS: no Review of Systems Review of Systems: All systems negative unless otherwise noted in HPI.
[2025-04-18 11:19] VITALS: BP 117/84; PULSE 83; RESP 19; TEMP 36.7; O2SAT 98; BMI 40.1
--- NOTE | 2025-04-18 11:20 | XR_ITS ---
Examination: Bilateral knees 2 views Right lateral knee left lateral knee 2 views Bilateral axial knees single view TECHNIQUE: Bilateral AP knees standing single view, bilateral PA knees standing single view flexion Standing right lateral knee left lateral knee 2 views Bilateral axial knees single view total 5 views Date and time: April 18, 2025 1127 hours INDICATIONS: Right knee replacement February 2025 left knee replacement June 2024. FINDINGS: Moderate osteopenia Bilateral total knee arthroplasties. Satisfactory alignment. No loosening of the prosthetic components. No patellar dislocation IMPRESSION: Bilateral total knee arthroplasties with satisfactory alignment
== END 2025-04-18 11:25 | disposition home or self-care (01) ==
LOC: HODSRG 11:08
PROVIDERS: PCP Internal Medicine; Referring Provider Internal Medicine; Supervising Provider Orthopaedic Surgery Adult Reconstructive Orthopaedic Surgery; Visit Provider Orthopaedic Surgery Adult Reconstructive Orthopaedic Surgery
DX: M17.0 Bilateral primary osteoarthritis of knee (principal); Z96.651 Presence of right artificial knee joint; E78.00 Pure hypercholesterolemia, unspecified; K21.9 Gastro-esophageal reflux disease without esophagitis; E03.9 Hypothyroidism, unspecified; E66.9 Obesity, unspecified; Z68.41 Body mass index [BMI] 40.0-44.9, adult
CPT/HCPCS: 73564; 99213; G0463

== ENCOUNTER 2025-04-22 15:00 | Outpatient (RCR) | payer MEDICARE, SELFPAY ==
--- NOTE | 2025-03-26 11:54 | PT.OIERPT ---
PT OP Initial Eval Patient Information Outpatient Physical Therapy Treatment Date: 03/26/25 Visit Reasons: TKA POST OP Medical Diagnosis: Right Knee OA Treatment Dx #1: Right Knee Pain Treatment Dx #2: Right Knee Mobility Deficits Start of Care: 03/26/25 Date of Onset: 03/06/25 Smoking Status Smoking Status: Never smoker Initial Assessment Subjective: Pt is a 60 y/o female s/p right TKA 03/06/25. Pt still has pain 6/10 with activities. Pt has limitation with walking, standing, chores, balance, self care, cooking, cleaning, squatting, and performing recreational activities. Pt received 5 sessions of homehealth physical therapy. Objective: Right Knee AROM: -16 deg to 114 deg Right Knee MMTs: grossly 3+/5 Right Hip MMTs: grossly 3+/5 Active SLR: 50 deg SLS: NT Assessment: Pt demonstrate right knee mobility and strength deficits s/p TKA leading to difficulty with ADLs. Pt will benefit from physical therapy to increase ROM, strength, and work on ambulation Short Term and Motor Assembler Goals 1) Increase right knee flexion AROM to 120 deg in 12 wks to be able to perform squatting activities 2) Increase right knee MMTs grossly to 4/5 in 12 wks to be able to perform stairs and steps 3) Increase right hip MMTs grossly to 4-/5 in 12 wks to be able to walk more than 30 mins 4) Decrease knee pain to 2/10 in 12 wks to be able to perform recreational activities 5) Increase SLS to 15 sec in 12 wks to be able to perform self care activities 6) Indep with HEP Treatment Plan 1) Manual Therapy 2) Therapeutic Activities 3) Therapeutic Exercises 4) Modalities (ice, heat) 5) Balance Training 6) Gait Training Frequency and Duration: 2 x wk for 12 wks Certification Dates: 03/26/25 to 06/25/25 Procedure Charges OP PT Eval Mod Complex 30 minutes: Yes
--- NOTE | 2025-03-27 13:35 | PTNOTE_ITS ---
PT Outpatient Daily Note OP Daily Note Outpatient Physical Therapy Treatment Date: 03/27/25 Visit Reasons: TKA POST OP Subjective: Pt reports being content with progress with R knee, notices that she is progressing faster than she did when she has L knee replaced. Objective: Please see flow sheet for ther ex list. Assessment: Interventions completed with minimal pain, applied cold pack post session. Plan: Continue with POC. Length of Time (minutes) of Treatment: 30 Minutes APARTMENT HOTEL MANAGER Service Modifier Method I: Divide the number of min of care provided by the APARTMENT HOTEL MANAGER/INSPECTOR METAL FABRICATING by the total min of care provided then multiply by 100. If greater than 11 percent modifier is required. Method II: Divide the total time of care provided to patient by 10 (round to the nearest whole number) and add 1 min. to set the minimum time requirement. If treatment total was 60 min., then 10% of 6 min PT CQ modifier applied: CQ Modifier applied Procedure Charges Therapeutic Exercise 30 minutes: Yes
--- NOTE | 2025-04-01 12:38 | PT.ODAYNRPT ---
PT Outpatient Daily Note OP Daily Note Outpatient Physical Therapy Treatment Date: 04/01/25 Visit Reasons: TKA POST OP Subjective: Pt states she is doing well with no complaints to R knee; explains her Rt knee feels better than her Lt side. Objective: See F/S for therex Assessment: Pt performed therex well with no complaints of pain to Rt knee. Required min verbal cues to correct posture with fwd lunge along with lateral steps. Applied cold pack post session. Plan: Continue with POC Length of Time (minutes) of Treatment: 30 Minutes Procedure Charges Therapeutic Exercise 30 minutes: Yes
--- NOTE | 2025-04-03 13:16 | PTNOTE_ITS ---
PT Outpatient Daily Note OP Daily Note Outpatient Physical Therapy Treatment Date: 04/03/25 Visit Reasons: TKA POST OP Subjective: Pt reports R knee is doing better. Objective: Please see flow sheet for ther ex list. Assessment: Added squats today on TG, verbal cues for foot placement to avoid narrows BRYNN, pt complies. Plan: Continue with poC. Length of Time (minutes) of Treatment: 30 Minutes CONCRETE PRODUCTS MACHINE OPERATOR Service Modifier Method I: Divide the number of min of care provided by the CONCRETE PRODUCTS MACHINE OPERATOR/GILLIAN by the total min of care provided then multiply by 100. If greater than 11 percent modifier is required. Method II: Divide the total time of care provided to patient by 10 (round to the nearest whole number) and add 1 min. to set the minimum time requirement. If treatment total was 60 min., then 10% of 6 min PT CQ modifier applied: CQ Modifier applied Procedure Charges Therapeutic Exercise 30 minutes: Yes
--- NOTE | 2025-04-05 15:19 | PT.ODAYNRPT ---
PT Outpatient Daily Note OP Daily Note Outpatient Physical Therapy Treatment Date: 04/05/25 Visit Reasons: TKA POST OP Subjective: Pt reports minimal pain to R knee; explains pain increases after prolonged periods of standing and walking. Objective: See F/S for therex Assessment: Tolerated therex well w/ minimal Rt knee pain. Progressed to step ups and lateral steps w/ no increase in pain. Ice applied post session. Plan: Continue with POC Length of Time (minutes) of Treatment: 30 Minutes Procedure Charges Therapeutic Exercise 30 minutes: Yes
--- NOTE | 2025-04-09 15:46 | PTNOTE_ITS ---
PT Outpatient Daily Note OP Daily Note Outpatient Physical Therapy Treatment Date: 04/09/25 Visit Reasons: TKA POST OP Subjective: Pt reports knee is doing pretty good, notices pain present but less intense. Objective: Please see flow sheet for ther ex list. Assessment: Pt instructed on heel toe gait training to work toward normalizing gait and improving knee flexion during swing phase. Plan: Continue with poC. Length of Time (minutes) of Treatment: 30 Minutes PATIENT CARE REPRESENTATIVE Service Modifier Method I: Divide the number of min of care provided by the PATIENT CARE REPRESENTATIVE/GILLIAN by the total min of care provided then multiply by 100. If greater than 11 percent modifier is required. Method II: Divide the total time of care provided to patient by 10 (round to the nearest whole number) and add 1 min. to set the minimum time requirement. If t reatment total was 60 min., then 10% of 6 min PT CQ modifier applied: CQ Modifier applied Procedure Charges Therapeutic Exercise 30 minutes: Yes
--- NOTE | 2025-04-11 15:57 | PT.ODAYNRPT ---
PT Outpatient Daily Note OP Daily Note Outpatient Physical Therapy Treatment Date: 04/11/25 Visit Reasons: TKA POST OP Subjective: Pt reports progress with R knee. Objective: Please see flow sheet for ther ex list. Assessment: Pt able to perform step up exercise today with single MANAGER LEADERSHIP DEVELOPMENT indicating progress. Plan: Continue with pOC. Length of Time (minutes) of Treatment: 30 Minutes COMPTOMETER OPERATOR Service Modifier Method I: Divide the number of min of care provided by the COMPTOMETER OPERATOR/GILLIAN by the total min of care provided then multiply by 100. If greater than 11 percent modifier is required. Method II: Divide the total time of care provided to patient by 10 (round to the nearest whole number) and add 1 min. to set the minimum time requirement. If treatment total was 60 min., then 10% of 6 min PT CQ modifier applied: CQ Modifier applied Procedure Charges Therapeutic Exercise 30 minutes: Yes
--- NOTE | 2025-04-17 15:48 | PT.ODAYNRPT ---
PT Outpatient Daily Note OP Daily Note Outpatient Physical Therapy Treatment Date: 04/17/25 Visit Reasons: TKA POST OP Subjective: Pt's knee is better, however, notice more swelling lately. Pt has been doing a lot more at home lately. Objective: Please see flow chart for list of ther ex performed Assessment: patient instructed to ice at home 15-20 mins to help manage knee edema. Pt is progressing well with closed chain exercises. Post ice after PT helped with pain, soreness, and edema Plan: Continue with PT Length of Time (minutes) of Treatment: 30 Minutes Procedure Charges Therapeutic Exercise 30 minutes: Yes
--- NOTE | 2025-04-22 16:06 | PTNOTE_ITS ---
PT Outpatient Daily Note OP Daily Note Outpatient Physical Therapy Treatment Date: 04/22/25 Visit Reasons: TKA POST OP Subjective: Pt's knee is much better. Pt mentioned she is doing back therapy at [facility] in [place]. Pt is unsure if she will continue knee therapy once she completes authorized session Objective: Please see flow chart for list of ther ex performed Assessment: able to perform step up and lateral step up exercises with good form. Minimal cues to keep the toes straight with monster walk. Plan: Continue with PT Length of Time (minutes) of Treatment: 30 Minutes Procedure Charges Therapeutic Exercise 30 minutes: Yes
== END 2025-04-23 23:59 | disposition home or self-care (01) ==
LOC: CPTX 15:00
PROVIDERS: PCP Orthopaedic Surgery Adult Reconstructive Orthopaedic Surgery; Referring Provider Orthopaedic Surgery Adult Reconstructive Orthopaedic Surgery; Visit Provider Orthopaedic Surgery Adult Reconstructive Orthopaedic Surgery
DX: M25.561 Pain in right knee (principal); R26.2 Difficulty in walking, not elsewhere classified; R26.89 Other abnormalities of gait and mobility; Z96.651 Presence of right artificial knee joint; M17.11 Unilateral primary osteoarthritis, right knee
CPT/HCPCS: 97110; 97162

== ENCOUNTER 2025-04-29 13:29 | Outpatient (RCR) | payer MEDICARE, SELFPAY ==
--- NOTE | 2025-04-29 13:53 | PT.ODAYNRPT ---
PT Outpatient Daily Note OP Daily Note Outpatient Physical Therapy Treatment Date: 04/29/25 Visit Reasons: TKA post op Subjective: Pt's knee feels good. No new concerns to report. Objective: Please see flow chart for list of ther ex performed Assessment: tolerate exercises with minimal pain and progressing well with step up and lateral step up exercise with improved quad control Plan: Continue with PT Length of Time (minutes) of Treatment: 30 Minutes Procedure Charges Therapeutic Exercise 30 minutes: Yes
--- NOTE | 2025-05-01 14:33 | PT.ODS1RPT ---
PT OP Progress/Discharge Note Date of Service: 05/01/25 Progress Note/DC Note Progress Note/Discharge Note: DC Note Patient Information Visit Reasons: TKA post op Service Discharge Date: 05/01/25 Status Assessment: Pt has been seen for 10 visits (eval + 9 visits). Pt last treated on 04/29/25 and came in 05/01/25 to cx all pending appt due to change in insurance. Pt did not meet set goals in therapy; thank you for your referrals.
== END 2025-05-24 23:59 | disposition home or self-care (01) ==
LOC: CPTX 13:29
PROVIDERS: PCP Orthopaedic Surgery Adult Reconstructive Orthopaedic Surgery; Referring Provider Orthopaedic Surgery Adult Reconstructive Orthopaedic Surgery; Visit Provider Orthopaedic Surgery Adult Reconstructive Orthopaedic Surgery
DX: Z47.1 Aftercare following joint replacement surgery (principal); Z96.651 Presence of right artificial knee joint; M25.561 Pain in right knee; R26.2 Difficulty in walking, not elsewhere classified; R26.89 Other abnormalities of gait and mobility
CPT/HCPCS: 97110

== ENCOUNTER 2025-06-18 11:02 | Outpatient (AMB) | payer MEDICARE, SELFPAY ==
[2025-06-18 11:25] VITALS: BP 156/93; PULSE 70; RESP 18; TEMP 36.5; O2SAT 99; BMI 41.0
--- NOTE | 2025-06-18 11:25 | ORTHONT_ITS ---
Vital signs 06/18/25 11:25 Height 1.52 m Height Method Measured Weight 94.801 kg Weight Measurement Method Standing Scale BMI 41.0 BP 156/93 H Blood Pressure Source Automatic Cuff Blood Pressure Location Left Upper Arm Position Sitting Respiration 18 Pulse 70 Pulse Source Monitor Temp 97.7 F Temp Source Temporal Artery Scan Pulse Oximetry (%) 99 Oxygen Delivery Method Room Air Med/Allergies Allergies & Medications Allergies No Known Drug Allergies Allergy (Verified 06/18/25 11:26) shrimp Allergy (Verified 06/18/25 11:26) Swelling of Lip/Tongue/Throat Medication Reconciliation levothyroxine 25 mcg capsule 25 mcg PO QDAY 05/22/24 [History Confirmed 06/18/25] aspirin 81 mg tablet,delayed release 81 mg PO BID #60 tabs 03/06/25 [Rx Confirmed 06/18/25] doxycycline hyclate 100 mg tablet 100 mg PO BID #14 tabs 03/06/25 [Rx Confirmed 06/18/25] sennosides 8.6 mg-docusate sodium 50 mg tablet (Senna-S) 1 tab-cap PO QDAY #30 tabs 03/06/25 [Rx Confirmed 06/18/25] oxycodone 5 mg tablet 5 mg PO Q6H PRN pain #28 tabs 03/21/25 [Rx Confirmed 06/18/25] acetaminophen 500 mg tablet (Acetaminophen Extra Strength) 1,000 mg (2 x 500 mg) PO Q6H PRN pain #90 tabs 04/18/25 [Rx Confirmed 06/18/25] gabapentin 300 mg capsule 300 mg PO .qhs #30 caps 06/18/25 [Rx] Exam Exam Patient is in no acute distress and is cooperative with the examination today. Breathing is nonlabored. In no respiratory distress. Bilateral extremities were evaluated and demonstrates sensation intact to light touch. Palpable pedal pulses are present. No significant edema is present. Bilateral hips were examined. The patient has no pain with log roll of the hips. Internal rotation to 30 degrees and external rotation to 30 degrees is painless. Negative FADIR. Left knee incision is clean dry and intact. Range of motion 0 to 110 degrees right knee incisions clean dry intact. Range of motion 0 to 100 degrees Assessment and Plan Problem List (1) Arthritis of left knee: Status: Acute Plan: Patient is a 59-year-old female with severe bilateral knee arthritis and is status post left total knee replacement and most recently a right total knee replacement. She reports that she is doing well. We will see her back in 6 months Office Procedures GNS Level of Care Nursing/Assessment Patient Status: Established Patient Nursing Assessment/Reassesment: Medication Reconciliation, Update PMH in EMR and Vital Signs Coordination of Care: Complex Care and Chronic Disease 1-5, Education Complex Pt/Fam, Consent,records obtained, informed consent, Results/Orders obtained and Staff clarify orders Established Patient Charge Established Patient Point Assignment: 95 Established Patient Point Charge: EP Level 3 (80-115) MA Intake Visit Data Collection New Patient or Established: Established Patient (seen at [facility] within 3 years) Reason for Visit:: 2 MONTH RT TKA Seen by Clinical Staff ONLY (RN/MA): No 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 PCP or OBGYN visit in last 3 months: Yes Hx Now: No Do You Feel Safe at Home: Yes Authorities Contacted: N/A Questionairres Past Medical History Past Medical History Have you ever been diagnosed with any of the following: Neurological Problems Seizures: No Cardiology Problems Hypercholesterolemia: Yes (diet control) Congestive Heart Failure: No Varicose Veins: Yes Respiratory Problems Chronic Obstructive Pulmonary Disease (COPD): No Smoking: No Smoking Exposure: No Stomache/Intestinal Problems Hepatitis: Yes (has treatment for a yr, does not know which kind) Gastroesophageal Reflux Disease: Yes Obesity: Yes Genital/Urinary Problems Renal Disease: No Reproductive Problems Previous Pregnancies: Yes Musculoskeletal Problems Arthritis: Yes Endocrine Problems Diabetes Mellitus Type 1: No Diabetes Mellitus Type 2: No Hypothyroidism: Yes Other Problems Hospitalization: No Shingles: No Blood Transfusions: No Blood Transfusion Reaction: No Anesthesia Reactions: No Chicken Pox: Yes Cancer: No Surgical History Total Knee Replacement: Yes (LEFT 2024) Subjective Visit Visit for: follow up visit and knee Immunization / Flu Flu Vaccine in the Last 12 Months: No Flu Vaccine Exclusion Criteria: No Exclusion Criteria History of Present Illness Chief complaint: Bilateral knee pain pATIENT is a pleasant 60-year-old female who is status post right total knee replacement 12 weeks ago. She is doing well. She reports minimal pain. She is very happy with her progress. Pain Pain level (0-10): 6 (RIGHT KNEE) Pain duration: COMES AND GOES Pain location: anterior Pain quality: dull and aching Pain timing: increases with activity Associated signs & symptoms: numbness Ambulatory data Ambulatory device: none Treatments Number of previous injections: 2 Improvement with previous injections: No Improvement with PT: No Improvement with NSAIDS: no Review of Systems Review of Systems: All systems negative unless otherwise noted in HPI.
== END 2025-06-18 11:29 | disposition home or self-care (01) ==
LOC: HODSRG 11:02
PROVIDERS: Supervising Provider Orthopaedic Surgery Adult Reconstructive Orthopaedic Surgery; Visit Provider Orthopaedic Surgery Adult Reconstructive Orthopaedic Surgery
DX: Z47.1 Aftercare following joint replacement surgery (principal); Z96.651 Presence of right artificial knee joint; M25.561 Pain in right knee; M25.562 Pain in left knee
CPT/HCPCS: 99213; G0463